=== PATIENT | female | born 1985 | race Caucasian/White ===

== ENCOUNTER 2017-02-13 18:45 | Inpatient (IN) | payer MEDICAID, OTHER ==
[2017-02-13 19:24] LABS: Hematocrit 40 % (35-47); Hemoglobin 13.3 g/dl (12.0-16.0); Mean Corpuscular HGB Conc 34 g/dl (31-36); Mean Corpuscular Hemoglobin 31 pg (27-31); Mean Corpuscular Volume 92 fL (80-97); Mean Platelet Volume 8 um3 (7.4-10.4); Red Blood Count 4.33 10^6/ul (4.0-5.4); Red Cell Distribution Width 13 % (10.5-15); White Blood Count 7.9 10^3/ul (3.5-10.8)
[2017-02-13 19:26] LABS: Urine Bilirubin Negative (Negative); Urine Glucose Negative (Negative); Urine Nitrite Negative (Negative)
[2017-02-13 19:39] LABS: ALT 7 U/L (7-52); AST 13 U/L (13-39); Albumin 4.6 g/dL (3.2-5.2); Alkaline Phosphatase 59 U/L (34-104); Anion Gap 5 mmol/L (2-11); BUN/Creatinine Ratio 12.3 (8-20); Blood Urea Nitrogen 10 mg/dL (6-24); CO2 Carbon Dioxide 29 mmol/L (22-32); Calcium 9.4 mg/dL (8.6-10.3); Chloride 104 mmol/L (101-111); EGFR African American 106.1 (>60); EGFR Non-African American 82.5 (>60); Globulin 3.1 g/dL (2-4); Glucose 91 mg/dL (70-100); Potassium 3.3 mmol/L (3.5-5.0); Sodium 138 mmol/L (133-145); Total Protein 7.7 g/dL (6.4-8.9)
[2017-02-13 19:42] LABS: Benzodiazepine Urine Screen None Detected (None Detect)
[2017-02-13 19:55] LABS: Acetaminophen < 15 mcg/mL; Alcohol < 10 mg/dL (<10); Salicylate < 2.50 mg/dL (<30)
[2017-02-13 20:06] LABS: TSH (Thyroid Stimulating Horm) 0.93 mcIU/mL (0.34-5.60)
[2017-02-13] MEDS ORDERED: Al Hydrox/Mg Hydrox/Simet LIQ* 30 ML UDC PO PRN (21:57)
[2017-02-13] MEDS ORDERED: Acetaminophen TAB* 325 MG PO PRN (21:57)
[2017-02-13] MEDS: Nicotine GUM* 2 MG PO PRN (22:02)
[2017-02-13] MEDS ORDERED: QUEtiapine TAB* 100 MG ONE (22:37)
[2017-02-13] MEDS: QUEtiapine TAB* 100 MG PO SCH (22:39)
[2017-02-13] MEDS: Zolpidem TAB* 10 MG PO SCH (22:39)
[2017-02-14] MEDS ORDERED: QUEtiapine TAB* 100 MG PO ONE (00:30)
[2017-02-14] MEDS ORDERED: QUEtiapine TAB* 100 MG ONE (00:34)
[2017-02-14] MEDS: Nicotine GUM* 2 MG PO PRN ×5 (00:36→22:35)
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
[2017-02-14] MEDS: Vitamin THERAPEUTIC TAB PO SCH (09:49)
[2017-02-14] MEDS ORDERED: Albuterol HFA INHALER* 8 gm MDI INH PRN (11:36)
[2017-02-14] MEDS ORDERED: Nicotine Inhaler* 10 MG AMP INH PRN (11:38)
[2017-02-14] MEDS ORDERED: Mouth Piece, Nicotine* 1 EACH CARTRIDGE INH ONE (12:00)
[2017-02-14] MEDS: Amphetamine MIXED SALT TAB* 10 MG TAB PO SCH (13:29)
[2017-02-14] MEDS: QUEtiapine TAB* 100 MG PO SCH (21:51)
[2017-02-14] MEDS: Zolpidem TAB* 10 MG PO SCH (22:34)
[2017-02-15] MEDS: Vitamin THERAPEUTIC TAB PO SCH (09:09)
[2017-02-15] MEDS: Amphetamine MIXED SALT TAB* 10 MG TAB PO SCH ×2 (09:10→14:10)
[2017-02-15] MEDS: Nicotine GUM* 2 MG PO PRN ×5 (09:10→21:33)
--- NOTE | 2017-02-15 12:15 | PN ---
MHU: Group Therapy Note - Service Type Service Type: [id number] Group Psychotherapy - Cognitive Behavioral Group Therapy ( CBT):Patient was attentive and participatory in CBT programming this morning, and remained in good behavioral control. Patient expressed positive insights regarding relevant treatment interventions and goals.
--- NOTE | 2017-02-15 12:24 | PN ---
Subjective - Subjective Service Type: 73074 Hosp care 15 min low complexity Subjective: Magaly reports a good unit experience. Notes feeling better. Says that although she probably appears relaxed and happy when socializing, she notes "anxiety is still there" when she withdraws. She does not feel like she's made sufficient progress to go home. We reviewed plan and medication. Objective - Appearance Appearance: Thin Framed Hygiene: Normal Grooming: Well Kept - Behavior Psychomotor Activities: Normal - Attitude and Relatedness Attitude and Relatedness: defended Eye Contact: Fair - Speech Quality: Unpressured Latencies: Normal Quantity: Appropriate - Mood Patient's Decription of Mood: "Anxious" - Affect Observed Affect: Non-labile Affect Consistent with: Euthymia - Thought Process Patient's Thought Process: Coherent, Goal Directed Thought Content: No Passive Wish, No Suicidal Planning, No Homicidal Ideation, No Paranoid Ideation - Sensorium Experiencing Hallucinations: No, Sensorium is Clear - Level of Consciousness Level of Consciousness: Alert - Impulse Control Impulse Control: Intact - Insight and Judgement Insight and Judgement: Fair Assessment - Assessment Merits Inpatient Hospitalization: For Stabilization, To Initiate Treatment, For Ongoing Evaluation, Consolidate Improvements, For Discharge Planning Inpatient DSM-IV Dx: Post-traumatic stress disorder, depressive disorder, borderline personality traits, ADHD, anorexia nervosa in remission. Clinical Impression: 31-year-old female with a history of trauma, borderline personality traits, chronic depressive tendencies, consideration for ADHD, PTSD, and previous suicidal behavior. She presented with report of unmanageable mood symptoms and increase in chronic suicidal thoughts in the setting of unclear stressor. Stabilizing here. Safe on checks, free of active suicidal ideation. Appears at low distress levels, notes ongoing subjective anxiety problem. Medication mgt. continues outpatient regimen. Plan - Plan Treatment Plan: Name: MAGALY BEARD Birthdate: 1985 [id number] Continued Medication Management: Continue Outpt Medication Medications: Current Medications Acetaminophen (Tylenol Tab*) 650 mg PO Q4H PRN PRN Reason: PAIN or TEMP > 101 F Last Admin: 02/14/17 11:20 Dose: 650 mg Al Hydrox/Mg Hydrox/Simethicone (Maalox Plus*) 30 ml PO Q4H PRN PRN Reason: INDIGESTION Albuterol (Ventolin Hfa Inhaler*) 2 puff INH Q4H PRN PRN Reason: SOB/WHEEZING Amphetamine/Dextroamphetamine (Adderall Tab*) 20 mg PO DAILY [facility] Last Admin: 02/15/17 09:10 Dose: 20 mg Amphetamine/Dextroamphetamine (Adderall Tab*) 20 mg PO 1400 [facility] Last Admin: 02/14/17 13:29 Dose: 20 mg Multivitamins (Theragran Tab*) 1 tab PO DAILY [facility] Last Admin: 02/15/17 09:09 Dose: Not Given Nicotine (Nicotine Inhaler*) 10 mg INH Q2H PRN PRN Reason: CRAVING Nicotine Polacrilex (Nicotine Gum*) 2 mg PO Q2H PRN PRN Reason: CRAVING Last Admin: 02/15/17 09:10 Dose: 2 mg Quetiapine Fumarate (Seroquel Tab*) 100 mg PO BEDTIME [facility] Last Admin: 02/14/17 21:51 Dose: 100 mg Zolpidem Tartrate (Ambien Tab*) 10 mg PO BEDTIME [facility] Last Admin: 02/14/17 22:34 Dose: 10 mg - Discharge Plan Discharge Plan: Outpatient Follow Up Outpatient Program: Private Clinician(s)
[2017-02-15] MEDS: QUEtiapine TAB* 100 MG PO SCH (22:10)
[2017-02-15] MEDS: Zolpidem TAB* 10 MG PO SCH (22:42)
[2017-02-16] MEDS: Amphetamine MIXED SALT TAB* 10 MG TAB PO SCH ×2 (09:10→14:01)
[2017-02-16] MEDS: Nicotine GUM* 2 MG PO PRN ×4 (09:11→20:48)
[2017-02-16] MEDS: Vitamin THERAPEUTIC TAB PO SCH (09:14)
--- NOTE | 2017-02-16 17:04 | PN ---
Subjective - Subjective Service Type: 45943 Hosp care 15 min low complexity Subjective: Says she feels somewhat better today and haven't thought self harm. Knows when to ask for help. Interactive on the unit with peers. Feels safe. Objective - Appearance Appearance: Thin Framed Dysmorphic Features: No Hygiene: Normal Grooming: Fairly Well Kept - Behavior Psychomotor Activities: Normal Exhibits Abnormal Movement: No - Attitude and Relatedness Attitude and Relatedness: Appropriate Eye Contact: Good - Speech Quality: Unpressured Latencies: Normal Quantity: Appropriate - Mood Patient's Decription of Mood: "Fine" - Affect Observed Affect: Non-labile - Thought Process Patient's Thought Process: Coherent, Goal Directed Thought Content: No Passive Wish, No Suicidal Planning, No Homicidal Ideation, No Paranoid Ideation - Sensorium Experiencing Hallucinations: No, Sensorium is Clear Type of Hallucinations: Visual: No, Auditory: No, Command: No - Level of Consciousness Level of Consciousness: Alert Orientation: Yes Intact, Yes Orientated to Time, Yes Orientated to Place, Yes Orientated to Person - Impulse Control Impulse Control: Intact - Insight and Judgement Insight and Judgement: Fair - Group Participation Particating in Group Activities: Yes - Medication Management Medication Management Adherence: Yes Assessment - Assessment Merits Inpatient Hospitalization: Consolidate Improvements, Pending Safe DC Plan Inpatient DSM-IV Dx: Post-traumatic stress disorder, depressive disorder, borderline personality traits, ADHD, anorexia nervosa in remission. Plan - Plan Treatment Plan: Name: MAGALY BEARD Birthdate: 1985 [id number] Continued Medication Management: Continue Outpt Medication Medications: Current Medications Acetaminophen (Tylenol Tab*) 650 mg PO Q4H PRN PRN Reason: PAIN or TEMP > 101 F Last Admin: 02/14/17 11:20 Dose: 650 mg Al Hydrox/Mg Hydrox/Simethicone (Maalox Plus*) 30 ml PO Q4H PRN PRN Reason: INDIGESTION Albuterol (Ventolin Hfa Inhaler*) 2 puff INH Q4H PRN PRN Reason: SOB/WHEEZING Amphetamine/Dextroamphetamine (Adderall Tab*) 20 mg PO DAILY [facility] Last Admin: 02/16/17 09:10 Dose: 20 mg Amphetamine/Dextroamphetamine (Adderall Tab*) 20 mg PO 1400 [facility] Last Admin: 02/16/17 14:01 Dose: 20 mg Multivitamins (Theragran Tab*) 1 tab PO DAILY [facility] Last Admin: 02/16/17 09:14 Dose: 1 tab Nicotine (Nicotine Inhaler*) 10 mg INH Q2H PRN PRN Reason: CRAVING Nicotine Polacrilex (Nicotine Gum*) 2 mg PO Q2H PRN PRN Reason: CRAVING Last Admin: 02/16/17 14:01 Dose: 2 mg Quetiapine Fumarate (Seroquel Tab*) 100 mg PO BEDTIME [facility] Last Admin: 02/15/17 22:10 Dose: 100 mg Zolpidem Tartrate (Ambien Tab*) 10 mg PO BEDTIME [facility] Last Admin: 02/15/17 22:42 Dose: 10 mg - Discharge Plan Discharge Plan: Outpatient Follow Up Outpatient Program: [facility]
[2017-02-16] MEDS: Zolpidem TAB* 10 MG PO SCH ×2 (22:33→23:11)
[2017-02-16] MEDS: QUEtiapine TAB* 100 MG PO SCH ×2 (22:33→23:11)
[2017-02-17] MEDS: Vitamin THERAPEUTIC TAB PO SCH (08:57)
[2017-02-17] MEDS: Amphetamine MIXED SALT TAB* 10 MG TAB PO SCH ×2 (08:57→14:08)
[2017-02-17] MEDS: Nicotine GUM* 2 MG PO PRN ×5 (08:58→21:27)
[2017-02-17] MEDS: Zolpidem TAB* 10 MG PO SCH (22:12)
[2017-02-17] MEDS: QUEtiapine TAB* 100 MG PO SCH (22:12)
--- NOTE | 2017-02-18 08:13 | PN ---
Subjective - Subjective Service Type: 77022 Hosp care 15 min low complexity Subjective: Magaly reports feeling safe and "basically okay." She was reluctant to plan discharge, citing wanting clarity and answers on her application for housing first "Living with my mom is not a great situation." She said she had a setback of anxiety on Saturday, but otherwise making some level of progress. Objective - Appearance Appearance: Thin Framed Hygiene: Normal Grooming: Fairly Well Kept - Behavior Psychomotor Activities: Normal - Attitude and Relatedness Attitude and Relatedness: defended Eye Contact: Good - Speech Quality: Unpressured Latencies: Normal Quantity: Terse - Mood Patient's Decription of Mood: "Okay" - Affect Observed Affect: Non-labile Affect Consistent with: Dysphoria - mild - Thought Process Patient's Thought Process: Coherent Thought Content: No Passive Wish, No Suicidal Planning, No Homicidal Ideation, No Paranoid Ideation - Sensorium Experiencing Hallucinations: No, Sensorium is Clear - Level of Consciousness Level of Consciousness: Alert - Impulse Control Impulse Control: Intact - Insight and Judgement Insight and Judgement: Fair Assessment - Assessment Merits Inpatient Hospitalization: To Initiate Treatment, For Ongoing Evaluation , Consolidate Improvements, For Discharge Planning Inpatient DSM-IV Dx: Post-traumatic stress disorder, depressive disorder, borderline personality traits, ADHD, anorexia nervosa in remission. Clinical Impression: 31-year-old female with a history of trauma, borderline personality traits, chronic depressive tendencies, consideration for ADHD, PTSD, and previous suicidal behavior. She presented with report of unmanageable mood symptoms and increase in chronic suicidal thoughts in the setting of unclear stressor. Stabilized here. Safe on checks, free of ongoing active suicidal ideation. Continues to appear at low distress levels, and notes ongoing subjective anxiety problems, without major progress here. Medication mgt. continues outpatient regimen. Given status and profile, substantial gains with acute care are not expected. Anticipate discharge in next few days. Plan - Plan Treatment Plan: Name: MAGALY BEARD Birthdate: 1985 [id number] Continued Medication Management: Continue Outpt Medication Medications: Current Medications Acetaminophen (Tylenol Tab*) 650 mg PO Q4H PRN PRN Reason: PAIN or TEMP > 101 F Last Admin: 02/14/17 11:20 Dose: 650 mg Al Hydrox/Mg Hydrox/Simethicone (Maalox Plus*) 30 ml PO Q4H PRN PRN Reason: INDIGESTION Albuterol (Ventolin Hfa Inhaler*) 2 puff INH Q4H PRN PRN Reason: SOB/WHEEZING Amphetamine/Dextroamphetamine (Adderall Tab*) 20 mg PO DAILY [facility] Last Admin: 02/17/17 08:57 Dose: 20 mg Amphetamine/Dextroamphetamine (Adderall Tab*) 20 mg PO 1400 [facility] Last Admin: 02/17/17 14:08 Dose: 20 mg Multivitamins (Theragran Tab*) 1 tab PO DAILY [facility] Last Admin: 02/17/17 08:57 Dose: 1 tab Nicotine (Nicotine Inhaler*) 10 mg INH Q2H PRN PRN Reason: CRAVING Nicotine Polacrilex (Nicotine Gum*) 2 mg PO Q2H PRN PRN Reason: CRAVING Last Admin: 02/17/17 21:27 Dose: 2 mg Quetiapine Fumarate (Seroquel Tab*) 100 mg PO BEDTIME [facility] Last Admin: 02/17/17 22:12 Dose: 100 mg Zolpidem Tartrate (Ambien Tab*) 10 mg PO BEDTIME [facility] Last Admin: 02/17/17 22:12 Dose: 10 mg - Discharge Plan Discharge Plan: Outpatient Follow Up
[2017-02-18] MEDS: Vitamin THERAPEUTIC TAB PO SCH (09:10)
[2017-02-18] MEDS: Amphetamine MIXED SALT TAB* 10 MG TAB PO SCH ×2 (09:10→14:51)
[2017-02-18] MEDS: Nicotine GUM* 2 MG PO PRN ×5 (09:12→20:56)
--- NOTE | 2017-02-18 12:01 | PN ---
MHU: Group Therapy Note - Service Type Service Type: [id number] Group Psychotherapy - Cognitive Behavioral Group Therapy ( CBT):Patient was attentive and participatory in CBT programming this morning, and remained in good behavioral control. Patient expressed positive insights regarding relevant treatment interventions and goals.
[2017-02-19] MEDS: QUEtiapine TAB* 100 MG PO SCH (00:21)
[2017-02-19] MEDS: Zolpidem TAB* 10 MG PO SCH (00:21)
[2017-02-19 08:30] VITALS: BP 93/65
[2017-02-19] MEDS: Amphetamine MIXED SALT TAB* 10 MG TAB PO SCH ×2 (09:22→14:22)
[2017-02-19] MEDS: Nicotine GUM* 2 MG PO PRN ×2 (09:23→14:22)
[2017-02-19] MEDS: Vitamin THERAPEUTIC TAB PO SCH (09:23)
--- NOTE | 2017-02-19 14:25 | DS ---
Subjective - Subjective Service Types: [id number] [facility] Day Mgmt complex over 30 min Discharge Date: 02/19/17 Subjective: Reyna was ambivalent about discharge today. On the one hand she recognized that there is no further anticipated gains to be expected. On the other she said she wished she felt better. We reviewed aftercare plan and medications - she said she sees no barriers to routine treatment or emergency care if needed again. She declined to allow partner integration planner contact with her family, but did allow coordination with aftercare. We discussed her housing situation. It's clear she has not been "evicted" by her mom, and actually has been able to stay with her brother when her conflict with mom escalates. Our expectation (discussed with staff familiar with her ) is that she will take a bus to [place] and have her brother pick her up ( after work) and take her home with him or drop her at mom's. She refuses to allow us to confirm this, and my take is that she's angry, frustrated overall that the system is not providing her with housing in [place], and has been using the idea of homelessness as a lever to get more help on that front. Objective - Appearance Appearance: Thin Framed Hygiene: Normal Grooming: Fairly Well Kept - Behavior Psychomotor Activities: Normal - Attitude and Relatedness Attitude and Relatedness: Manipulative Eye Contact: Good - Speech Quality: Unpressured Latencies: Normal Quantity: Appropriate - Mood Patient's Decription of Mood: "Okay" - Affect Observed Affect: Labile Affect Consistent with: Dysphoria - mild - Thought Process Patient's Thought Process: Coherent Thought Content: No Passive Wish, No Suicidal Planning, No Homicidal Ideation, No Paranoid Ideation - Sensorium Experiencing Hallucinations: No, Sensorium is Clear - Level of Consciousness Level of Consciousness: Alert - Impulse Control Impulse Control: Intact - Insight and Judgement Insight and Judgement: Fair Treatment Course & Assessment Clinical Course & Impression: 31-year-old female with a history of trauma, borderline personality traits, chronic depressive tendencies, consideration for ADHD, PTSD, and previous suicidal behavior. She presented with report of unmanageable mood symptoms and increase in chronic suicidal thoughts in the setting of unclear stressor. 02/19/17 Clear for discharge today. Reyna was stable in this setting. She was safe on all checks, free of ongoing active suicidal ideation. After her first day she already appeared at low distress levels, with sufficient benefits from a acute care episode already realized. Given Reyna's status and profile, gains with ongoing acute care are not expected now. An issue appears to be her dissatisfaction with living with her mother, and her process of seeking help with housing support. She engaged her partner integration planner for assistance with this, and was not happy with results - the reality is that she does not have near term access to supported housing in [place]. Her frustration around this appears to have caused some alliance breakdown and negative therapeutic reactions as appropriate discharge is organized. Medication mgt. continues outpatient regimen. At this time Reyna is unimpaired by symptoms. Depressive symptoms and anxiety are assessed as mild in severity based on correlation between clinical interview and other observations by staff. Risk concern centers on suicide risk. Reyna is at chronic elevated risk for suicide based on her prior history, and her diagnostic profile. Acute risk is assessed as low based on low symptom burden, absence of impairment , and patients observed benign behavior. Compared with other discharges, Reyna's satisfaction and engagement is poor, making it harder to predict her behavior, and potentially increasing risk for reactive self harm behavior. Clear for Discharge: Adequate Clinical Respons, Acceptable Safety Profile, Low Utility of Inpt Care Inpatient DSM-IV Dx: Post-traumatic stress disorder, depressive disorder, borderline personality traits, ADHD, anorexia nervosa in remission. Discharge Planning - Discharge Planning Discharge Plan: Outpatient Follow Up Outpatient Program: Private Clinician(s) Recommendations for Continuing Care: Medication Management, Psychotherapy Medications: Current Medications Albuterol (Ventolin Hfa Inhaler*) 2 puff INH Q4H PRN PRN Reason: SOB/WHEEZING Amphetamine/Dextroamphetamine (Adderall Tab*) 20 mg PO DAILY [facility] Last Admin: 02/19/17 09:22 Dose: 20 mg Amphetamine/Dextroamphetamine (Adderall Tab*) 20 mg PO 1400 [facility] Last Admin: 02/18/17 14:51 Dose: 20 mg Quetiapine Fumarate (Seroquel Tab*) 100 mg PO BEDTIME [facility] Last Admin: 02/19/17 00:21 Dose: 100 mg Zolpidem Tartrate (Ambien Tab*) 10 mg PO BEDTIME [facility] Last Admin: 02/19/17 00:21 Dose: 10 mg Confirmed expected controlled Rx's with [facility] Reference #: [id number] Discharge Planning: Prescriptions provided for discharge [] Yes [x] No Follow up care details as per social work arrangements. Patient response to discharge plan: [] eager for discharge [] agreeable with discharge plan [x] ambivalent about discharge [] disagrees with discharge today
== END 2017-02-19 15:30 | disposition home or self-care (01) | DRG 755 ==
LOC: ED 18:45 → BSU 23:20
PROVIDERS: ADMIT Psychiatry & Neurology Psychiatry; ATTEND Psychiatry & Neurology Psychiatry
PROC: GZHZZZZ Group Psychotherapy (ICD-10-PCS; principal; 2017-02-13)
DX: F43.10 Post-traumatic stress disorder, unspecified (principal); F50.00 Anorexia nervosa, unspecified; F32.9 Major depressive disorder, single episode, unspecified; F90.9 Attention-deficit hyperactivity disorder, unspecified type; Z56.0 Unemployment, unspecified; F60.3 Borderline personality disorder; J45.909 Unspecified asthma, uncomplicated; M81.0 Age-related osteoporosis without current pathological fracture; F17.210 Nicotine dependence, cigarettes, uncomplicated; Z62.810 Personal history of physical and sexual abuse in childhood
CPT/HCPCS: 36415; 80053; 80307; 80320; 80329; 81003; 84443; 85025; 90853; 99222; 99231; 99238; 99406; A9270-GY; G0480

== ENCOUNTER 2017-04-18 20:36 | Inpatient (IN) | payer MEDICAID, OTHER ==
[2017-04-18 22:06] LABS: Urine Bilirubin Negative (Negative); Urine Glucose Negative (Negative); Urine Nitrite Negative (Negative)
[2017-04-18 22:24] LABS: Hematocrit 39 % (35-47); Hemoglobin 12.8 g/dl (12.0-16.0); Mean Corpuscular HGB Conc 33 g/dl (31-36); Mean Corpuscular Hemoglobin 30 pg (27-31); Mean Corpuscular Volume 91 fL (80-97); Mean Platelet Volume 9 um3 (7.4-10.4); Red Blood Count 4.25 10^6/ul (4.0-5.4); Red Cell Distribution Width 13 % (10.5-15)
[2017-04-18 22:39] LABS: ALT 7 U/L (7-52); AST 13 U/L (13-39); Albumin 4.3 g/dL (3.2-5.2); Alkaline Phosphatase 60 U/L (34-104); Anion Gap 4 mmol/L (2-11); Blood Urea Nitrogen 17 mg/dL (6-24); CO2 Carbon Dioxide 28 mmol/L (22-32); Calcium 9.5 mg/dL (8.6-10.3); Chloride 105 mmol/L (101-111); EGFR African American 129.8 (>60); EGFR Non-African American 100.9 (>60); Globulin 2.6 g/dL (2-4); Glucose 89 mg/dL (70-100); Potassium 3.8 mmol/L (3.5-5.0); Sodium 137 mmol/L (133-145); Total Protein 6.9 g/dL (6.4-8.9)
[2017-04-18 22:41] LABS: Benzodiazepine Urine Screen None Detected (None Detect)
[2017-04-18] MEDS ORDERED: Nicotine GUM* 2 MG ONE (23:16)
[2017-04-18] MEDS ORDERED: Nicotine GUM* 2 MG PO ONE (23:16)
[2017-04-18 23:17] LABS: Acetaminophen < 15 mcg/mL; Alcohol < 10 mg/dL (<10); Salicylate < 2.50 mg/dL (<30)
[2017-04-18 23:27] LABS: TSH (Thyroid Stimulating Horm) 1.63 mcIU/mL (0.34-5.60)
[2017-04-19] MEDS ORDERED: QUEtiapine TAB* 100 MG PO ONE (00:25)
[2017-04-19] MEDS ORDERED: Zolpidem TAB* 10 MG PO ONE (00:25)
[2017-04-19] MEDS ORDERED: Nicotine Inhaler* 10 MG AMP INH PRN (06:13)
[2017-04-19] MEDS ORDERED: Acetaminophen TAB* 325 MG PO PRN (06:13)
[2017-04-19] MEDS ORDERED: Mouth Piece, Nicotine* 1 EACH CARTRIDGE INH SCH (06:13)
[2017-04-19] MEDS ORDERED: Al Hydrox/Mg Hydrox/Simet LIQ* 30 ML UDC PO PRN (06:13)
[2017-04-19] MEDS ORDERED: Albuterol HFA INHALER* 8 gm MDI INH PRN (06:15)
[2017-04-19] MEDS: Vitamin THERAPEUTIC TAB PO SCH (09:17)
[2017-04-19] MEDS: Nicotine GUM* 2 MG PO PRN ×4 (09:18→20:33)
--- NOTE | 2017-04-19 13:02 | ED ---
dangelo Benz Timothy, scribed for Jorge Penaloza MD on 04/18/17 at 2109 . Psychiatric Complaint - HPI Summary HPI Summary: Reyna Dailey is a 31 yo female presenting to [facility] for MHUE per her therapist' s recommendation. She admits to SI for the past week, and has a plan, and has googled how to tie a noose. She is not in any current pain. She states that she has been rationalizing her feelings by generalizing her problems to the larger world. Her MHx includes heart murmur, migraine, asthma, hiatal hernoia, osteoperosis, ADHD, PTSD, eating disorder, depression, anxiety, substance abuse , suicide attempt, borderline personality disorder, and tobacco use. - History Of Current Complaint Chief Complaint: EDMentalHealth Time Seen by Provider: 04/18/17 20:58 Hx Obtained From: Patient Onset/Duration: Gradual Onset, Lasting Days, Still Present Timing: Constant Severity Initially: Moderate Severity Currently: Moderate Character: Depressed Related History: Positive For: Prior Psychiatric Issues Has Suicidal: Reports: Thoughts, With A Plan - Allergies/Home Medications Allergies/Adverse Reactions: Allergies Allergy/AdvReac Type Severity Reaction Status Date / Time No Known Allergies Allergy Verified 04/18/17 20:38 PMH/Surg Hx/FS Hx/Imm Hx Endocrine/Hematology History: Denies: Hx Anticoagulant Therapy, Hx Diabetes, Hx Thyroid Disease Cardiovascular History: Reports: Other Cardiovascular Problems/Disorders - RAYNAUDS PHENOMENON Denies: Hx Hypertension, Hx Pacemaker/ICD Respiratory History: Reports: Hx Asthma - Occasional to rare use of Albuterol MDI Denies: Hx Chronic Obstructive Pulmonary Disease (COPD) GI History: Reports: Hx Hiatal Hernia History: Denies: Hx Renal Disease Musculoskeletal History: Reports: Hx Osteoporosis Sensory History: Denies: Hx Contacts or Glasses, Hx Hearing Aid Opthamlomology History: Denies: Hx Contacts or Glasses Neurological History: Reports: Hx Migraine Denies: Hx Dementia, Hx Developmental Delay, Hx Headaches, Hx Nerve Disease, Hx Seizures, Hx Spinal Cord Injury, Hx Transient Ischemic Attacks (TIA), Other Neuro Impairments/Disorders Psychiatric History: Reports: Hx Anxiety, Hx Attention Deficit Hyperactivity Disorder, Hx Eating Disorder, Hx Depression, Hx Post Traumatic Stress Disorder, Hx Inpatient Treatment, Hx Community Mental Health Tx, Hx Suicide Attempt, Hx Substance Abuse, Other Psychiatric Issues/Disorders - BORDERLINE PERS D/O Denies: Hx Panic Disorder, Hx Schizophrenia, Hx Bipolar Disorder, Hx of Violent Episodes Against Others - Surgical History Surgery Procedure, Year, and Place: wisdom teeth removal - Immunization History Date of Tetanus Vaccine: unknown Infectious Disease History: No Infectious Disease History: Denies: Hx Clostridium Difficile, Hx Hepatitis, Hx Human Immunodeficiency Virus (HIV), Hx Shingles, Hx Tuberculosis, Hx Known/Suspected VRE, Hx Known/ Suspected VRSA, History Other Infectious Disease, Traveled Outside the [place] in Last 30 Days - Family History Known Family History: Positive: Other - DEPRESSION, ETOH ABUSE Negative: Cardiac Disease, Hypertension, Diabetes - Social History Alcohol Use: None Hx Substance Use: No Substance Use Type: Reports: None Hx Tobacco Use: Yes - 8 YEARS, 1/2 PACK A DAY Smoking Status (MU): Light Every Day Tobacco Smoker Type: Cigarettes Amount Used/How Often: 1/2 ppd Length of Time of Smoking/Using Tobacco: 10 years Have You Smoked in the Last Year: Yes - Smoked yesterday 05/31/16; "1/2 pack-a- day smoker" Review of Systems Constitutional: Negative Eyes: Negative ENT: Negative Cardiovascular: Negative Respiratory: Negative Gastrointestinal: Negative Genitourinary: Negative Musculoskeletal: Negative Skin: Negative Neurological: Negative Positive: Depressed All Other Systems Reviewed And Are Negative: Yes Physical Exam Vital Signs On Initial Exam: Initial Vitals Temp Pulse Resp BP Pulse Ox 98.0 F 113 20 138/74 100 04/18/17 20:38 04/18/17 20:38 04/18/17 20:38 04/18/17 20:38 04/18/17 20:38 Diagnostics - Vital Signs Vital Signs Temp Pulse Resp BP Pulse Ox 04/18/17 20:38 98.0 F 113 20 138/74 100 - Laboratory Lab Results: Lab Results 04/18/17 04/18/17 04/18/17 Range/Units 21:50 21:50 22:13 WBC 8.0 (3.5-10.8) 10^3/ul RBC 4.25 (4.0-5.4) 10^6/ul Hgb 12.8 (12.0-16.0) g/dl Hct 39 (35-47) % MCV 91 (80-97) fL MCH 30 (27-31) pg MCHC 33 (31-36) g/dl RDW 13 (10.5-15) % Plt Count 261 (150-450) 10^3/ul MPV 9 (7.4-10.4) um3 Neut % (Auto) 52.2 (38-83) % Lymph % (Auto) 28.0 (25-47) % Blount % (Auto) 10.8 H (1-9) % Eos % (Auto) 7.9 H (0-6) % Baso % (Auto) 1.1 (0-2) % Absolute Neuts (auto) 4.2 (1.5-7.7) 10^3/ul Absolute Lymphs (auto) 2.2 (1.0-4.8) 10^3/ul Absolute Monos (auto) 0.9 H (0-0.8) 10^3/ul Absolute Eos (auto) 0.6 (0-0.6) 10^3/ul Absolute Basos (auto) 0.1 (0-0.2) 10^3/ul Absolute Nucleated RBC 0.01 10^3/ul Nucleated RBC % 0.1 Sodium (133-145) mmol/L Potassium (3.5-5.0) mmol/L Chloride (101-111) mmol/L Carbon Dioxide (22-32) mmol/L Anion Gap (2-11) mmol/L BUN (6-24) mg/dL Creatinine (0.51-0.95) mg/dL Est GFR ( Amer) (>60) Est GFR (Non-Af Amer) (>60) BUN/Creatinine Ratio (8-20) Glucose (70-100) mg/dL Calcium (8.6-10.3) mg/dL Total Bilirubin (0.2-1.0) mg/dL AST (13-39) U/L ALT (7-52) U/L Alkaline Phosphatase (34-104) U/L Total Protein (6.4-8.9) g/dL Albumin (3.2-5.2) g/dL Globulin (2-4) g/dL Albumin/Globulin Ratio (1-3) TSH (0.34-5.60) mcIU/mL Beta HCG, Quant mIU/mL Urine Color Straw Urine Appearance Clear Urine pH 7.0 (5-9) Ur Specific [place] 1.004 L (1.010-1.030) Urine Protein Negative (Negative) Urine Ketones Negative (Negative) Urine Blood Negative (Negative) Urine Nitrate Negative (Negative) Urine Bilirubin Negative (Negative) Urine Urobilinogen Negative (Negative) Ur Leukocyte Esterase Negative (Negative) Urine Glucose Negative (Negative) Salicylates (<30) mg/dL Urine Opiates Screen None detected (None Detect) Acetaminophen mcg/mL Ur Barbiturates Screen None detected (None Detect) Ur Phencyclidine Scrn None detected (None Detect) Ur Amphetamines Screen None detected (None Detect) U Benzodiazepines Scrn None detected (None Detect) Urine Cocaine Screen None detected (None Detect) U Cannabinoids Screen None detected (None Detect) Serum Alcohol (<10) mg/dL 04/18/17 Range/Units 22:13 WBC (3.5-10.8) 10^3/ul RBC (4.0-5.4) 10^6/ul Hgb (12.0-16.0) g/dl Hct (35-47) % MCV (80-97) fL MCH (27-31) pg MCHC (31-36) g/dl RDW (10.5-15) % Plt Count (150-450) 10^3/ul MPV (7.4-10.4) um3 Neut % (Auto) (38-83) % Lymph % (Auto) (25-47) % Blount % (Auto) (1-9) % Eos % (Auto) (0-6) % Baso % (Auto) (0-2) % Absolute Neuts (auto) (1.5-7.7) 10^3/ul Absolute Lymphs (auto) (1.0-4.8) 10^3/ul Absolute Monos (auto) (0-0.8) 10^3/ul Absolute Eos (auto) (0-0.6) 10^3/ul Absolute Basos (auto) (0-0.2) 10^3/ul Absolute Nucleated RBC 10^3/ul Nucleated RBC % Sodium 137 (133-145) mmol/L Potassium 3.8 (3.5-5.0) mmol/L Chloride 105 (101-111) mmol/L Carbon Dioxide 28 (22-32) mmol/L Anion Gap 4 (2-11) mmol/L BUN 17 (6-24) mg/dL Creatinine 0.68 (0.51-0.95) mg/dL Est GFR ( Amer) 129.8 (>60) Est GFR (Non-Af Amer) 100.9 (>60) BUN/Creatinine Ratio 25.0 H (8-20) Glucose 89 (70-100) mg/dL Calcium 9.5 (8.6-10.3) mg/dL Total Bilirubin 0.30 (0.2-1.0) mg/dL AST 13 (13-39) U/L ALT 7 (7-52) U/L Alkaline Phosphatase 60 (34-104) U/L Total Protein 6.9 (6.4-8.9) g/dL Albumin 4.3 (3.2-5.2) g/dL Globulin 2.6 (2-4) g/dL Albumin/Globulin Ratio 1.7 (1-3) TSH 1.63 (0.34-5.60) mcIU/mL Beta HCG, Quant < 0.60 mIU/mL Urine Color Urine Appearance Urine pH (5-9) Ur Specific [place] (1.010-1.030) Urine Protein (Negative) Urine Ketones (Negative) Urine Blood (Negative) Urine Nitrate (Negative) Urine Bilirubin (Negative) Urine Urobilinogen (Negative) Ur Leukocyte Esterase (Negative) Urine Glucose (Negative) Salicylates < 2.50 (<30) mg/dL Urine Opiates Screen (None Detect) Acetaminophen < 15 mcg/mL Ur Barbiturates Screen (None Detect) Ur Phencyclidine Scrn (None Detect) Ur Amphetamines Screen (None Detect) U Benzodiazepines Scrn (None Detect) Urine Cocaine Screen (None Detect) U Cannabinoids Screen (None Detect) Serum Alcohol < 10 (<10) mg/dL Result Diagrams: 04/18/17 22:13 04/18/17 22:13 Lab Statement: Any lab studies that have been ordered have been reviewed, and results considered in the medical decision making process. Course/Dx - Course Assessment/Plan: Reyna Bailon is a 31 yo female presenting to [facility] for a MHUE per the recommendation of her therapist, admitting to for the past week. She is medically clear for MHUE at 2312. She will be signed out pendin MHUE results. - Differential Dx/Clinical Impression Provider Diagnosis: Depression Discharge - Discharge Plan Condition: Stable Disposition: ADMITTED TO [facility] Discharge Disposition Comment: signed out pending MHUE results The documentation as recorded by the dangelo ramos Timothy accurately reflects the service I personally performed and the decisions made by me, Jorge Penaloza MD.
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
[2017-04-19] MEDS: QUEtiapine TAB* 100 MG PO PRN (22:09)
[2017-04-19] MEDS: Zolpidem TAB* 10 MG PO PRN (22:09)
[2017-04-20] MEDS: Amphetamine MIXED SALT TAB* 10 MG TAB PO SCH ×2 (09:12→14:00)
[2017-04-20] MEDS: Vitamin THERAPEUTIC TAB PO SCH (09:12)
[2017-04-20] MEDS: Nicotine GUM* 2 MG PO PRN ×4 (09:15→20:02)
--- NOTE | 2017-04-20 18:31 | PN ---
Subjective - Subjective Service Type: 04541 Hosp care 15 min low complexity Subjective: Magaly is seen for routine weekend follow up. She denies SI and indicates that she's likely returning to [place], [place] after d/c to stay with her mother until she's feeling better. She's active in groups and requests computer privileges. Objective - Appearance Appearance: Well Developed/Nourished Dysmorphic Features: No Hygiene: Normal Grooming: Well Kept - Behavior Psychomotor Activities: Normal Exhibits Abnormal Movement: No - Attitude and Relatedness Attitude and Relatedness: Cooperative Eye Contact: Good - Speech Quality: Unpressured Latencies: Normal Quantity: Appropriate - Mood Patient's Decription of Mood: "Good" - Affect Observed Affect: Good Affect Consistent with: Euthymia - Thought Process Patient's Thought Process: Coherent Thought Content: No Passive Wish, No Suicidal Planning, No Homicidal Ideation, No Paranoid Ideation - Sensorium Experiencing Hallucinations: No, Sensorium is Clear Type of Hallucinations: Visual: No, Auditory: No, Command: No - Level of Consciousness Level of Consciousness: Alert Orientation: Yes Intact, Yes Orientated to Time, Yes Orientated to Place, Yes Orientated to Person - Impulse Control Impulse Control: Intact - Insight and Judgement Insight and Judgement: Good - Group Participation Particating in Group Activities: Yes - Medication Management Medication Management Adherence: Yes Assessment - Assessment Merits Inpatient Hospitalization: For Immediate Safety, For Stabilization Inpatient DSM-IV Dx: PTSD Clinical Impression: 31 y.o. single, white female with a history of PTSD arrives voluntarily seeking hospitalization for worsening depressive symptoms and SI with thoughts of hanging herself. Plan - Plan Treatment Plan: Name: MAGALY BEARD Birthdate: 1985 [id number] The patient is taking outpatient medication regimen that includes quetiapine, zolpidem and amphetamine salts. She is active on the milieu. Continue to treat inpatient. Continued Medication Management: Continue Outpt Medication Medications: Current Medications Acetaminophen (Tylenol Tab*) 650 mg PO Q4H PRN PRN Reason: PAIN or TEMP > 101 F Al Hydrox/Mg Hydrox/Simethicone (Maalox Plus*) 30 ml PO Q4H PRN PRN Reason: INDIGESTION Albuterol (Ventolin Hfa Inhaler*) 2 puff INH Q4H PRN PRN Reason: SHORTNESS OF BREATH Amphetamine/Dextroamphetamine (Adderall Tab*) 20 mg PO 0800,1300 [facility] Last Admin: 04/20/17 14:00 Dose: 20 mg Device (Nicotine Mouth Piece*) 1 each INH .CARTRIDGE [facility] Multivitamins (Theragran Tab*) 1 tab PO DAILY [facility] Last Admin: 04/20/17 09:12 Dose: 1 tab Nicotine (Nicotine Inhaler*) 10 mg INH Q2H PRN PRN Reason: CRAVING Nicotine Polacrilex (Nicotine Gum*) 2 mg PO Q2H PRN PRN Reason: CRAVING Last Admin: 04/20/17 16:01 Dose: 2 mg Quetiapine Fumarate (Seroquel Tab*) 100 mg PO BEDTIME PRN PRN Reason: INSOMNIA Last Admin: 04/19/17 22:09 Dose: 100 mg Zolpidem Tartrate (Ambien Tab*) 10 mg PO BEDTIME PRN PRN Reason: INSOMNIA Last Admin: 04/19/17 22:09 Dose: 10 mg - Discharge Plan Discharge Plan: Inpatient Hospitalization
[2017-04-21] MEDS: Zolpidem TAB* 10 MG PO PRN (00:15)
[2017-04-21] MEDS: QUEtiapine TAB* 100 MG PO PRN (00:15)
[2017-04-21] MEDS: Nicotine GUM* 2 MG PO PRN ×5 (00:16→19:48)
[2017-04-21] MEDS: Vitamin THERAPEUTIC TAB PO SCH (09:00)
[2017-04-21] MEDS: Amphetamine MIXED SALT TAB* 10 MG TAB PO SCH ×3 (09:00→13:41)
[2017-04-22] MEDS: Nicotine GUM* 2 MG PO PRN ×6 (03:21→22:55)
[2017-04-22] MEDS: Amphetamine MIXED SALT TAB* 10 MG TAB PO SCH ×2 (09:35→14:10)
[2017-04-22] MEDS: Vitamin THERAPEUTIC TAB PO SCH (09:35)
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
[2017-04-22] MEDS: QUEtiapine TAB* 100 MG PO PRN (22:54)
[2017-04-22] MEDS: Zolpidem TAB* 10 MG PO PRN (22:54)
[2017-04-23 07:49] VITALS: BP 112/68
[2017-04-23] MEDS: Amphetamine MIXED SALT TAB* 10 MG TAB PO SCH (08:50)
[2017-04-23] MEDS: Vitamin THERAPEUTIC TAB PO SCH (08:50)
[2017-04-23] MEDS: Nicotine GUM* 2 MG PO PRN (08:52)
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
--- NOTE | 2017-04-23 11:44 | PN ---
MHU: Group Therapy Note - Service Type Service Type: [id number] Group Psychotherapy - Cognitive Behavioral Group Therapy ( CBT):Patient was attentive and participatory in CBT programming this morning, and remained in good behavioral control. Patient expressed positive insights regarding relevant treatment interventions and goals.
[2017-04-23] MEDS ORDERED: Amphetamine MIXED SALT TAB* 10 MG TAB PO ONE (12:00)
[2017-04-23 12:33] LABS: Cholesterol 160 mg/dL; HDL Cholesterol 65.6 mg/dL; LDL Cholesterol 85 mg/dL; Triglycerides 48 mg/dL
== END 2017-04-23 12:25 | disposition home or self-care (01) | DRG 755 ==
LOC: ED 20:36 → BSU 04-19 04:50
PROVIDERS: ADMIT Internal Medicine; ATTEND Psychiatry & Neurology Psychiatry
DX: F43.10 Post-traumatic stress disorder, unspecified (principal); R45.851 Suicidal ideations; F41.9 Anxiety disorder, unspecified; F90.9 Attention-deficit hyperactivity disorder, unspecified type; J45.909 Unspecified asthma, uncomplicated; K44.9 Diaphragmatic hernia without obstruction or gangrene; G43.909 Migraine, unspecified, not intractable, without status migrainosus; Z88.6 Allergy status to analgesic agent; Z81.8 Family history of other mental and behavioral disorders; Z81.1 Family history of alcohol abuse and dependence
CPT/HCPCS: 36415; 80053; 80061; 80307; 80320; 80329; 81003; 84443; 84702; 85025; 99231; 99238; A9270-GY; G0480

== ENCOUNTER 2017-09-06 19:44 | Emergency (ER) | payer MEDICAID ==
[2017-09-06 19:50] VITALS: BP 143/76
[2017-09-06 20:14] LABS: Hematocrit 37 % (35-47); Hemoglobin 12.7 g/dl (12.0-16.0); Mean Corpuscular HGB Conc 34 g/dl (31-36); Mean Corpuscular Hemoglobin 31 pg (27-31); Mean Corpuscular Volume 91 fL (80-97); Mean Platelet Volume 8 um3 (7.4-10.4); Red Blood Count 4.12 10^6/ul (4.0-5.4); Red Cell Distribution Width 14 % (10.5-15); White Blood Count 8.1 10^3/ul (3.5-10.8)
[2017-09-06 20:28] LABS: ALT 8 U/L (7-52); AST 12 U/L (13-39); Albumin 4.2 g/dL (3.2-5.2); Alkaline Phosphatase 74 U/L (34-104); Anion Gap 6 mmol/L (2-11); BUN/Creatinine Ratio 18.2 (8-20); Blood Urea Nitrogen 14 mg/dL (6-24); CO2 Carbon Dioxide 28 mmol/L (22-32); Calcium 9.6 mg/dL (8.6-10.3); Chloride 104 mmol/L (101-111); EGFR African American 111.7 (>60); EGFR Non-African American 86.9 (>60); Glucose 94 mg/dL (70-100); Sodium 138 mmol/L (133-145); Total Protein 7.2 g/dL (6.4-8.9)
[2017-09-06 20:46] LABS: Acetaminophen < 15 mcg/mL; Alcohol < 10 mg/dL (<10); Salicylate < 2.50 mg/dL (<30)
[2017-09-06 21:01] LABS: TSH (Thyroid Stimulating Horm) 1.56 mcIU/mL (0.34-5.60)
[2017-09-06] MEDS ORDERED: LORazepam TAB(*) 1 MG PO ONE (21:21)
[2017-09-06] MEDS ORDERED: Nicotine GUM* 2 MG ONE (21:58)
[2017-09-06] MEDS ORDERED: Nicotine GUM* 2 MG PO ONE (21:59)
[2017-09-06 22:00] LABS: Urine Bilirubin Negative (Negative); Urine Glucose Negative (Negative); Urine Nitrite Negative (Negative)
[2017-09-06 22:15] LABS: Benzodiazepine Urine Screen None Detected (None Detect)
[2017-09-07] MEDS ORDERED: Acetaminophen TAB* 325 MG PO ONE (00:39)
--- NOTE | 2017-09-07 01:25 | ED ---
Psychiatric Complaint - HPI Summary HPI Summary: Patient presents to the ED with c/o suicidal ideation, depression and anxiety. Hx of PTSD, anorexia, depressive disorder and borderline personality disorder. Denies ETOH or drug use. She states she has a plan with her psychiatrist that if she is having suicidal thoughts, she needs to come to the ED as opposed to be "forcibly put here by police," so she was willing to come in. Denies physical pain. Currently has suicidal thoughts, denies HI and denies physical pain. Notes to anxiety. - History Of Current Complaint Chief Complaint: EDMentalHealth Time Seen by Provider: 09/06/17 20:01 Hx Obtained From: Patient ?: No Onset/Duration: Sudden Onset Timing: Constant Severity Initially: Moderate Severity Currently: Moderate Character: Manic, Depressed Aggravating Factor(s): Nothing Alleviating Factor(s): Nothing Associated Signs And Symptoms: Positive: Negative Related History: Positive For: Prior Psychiatric Issues Has Suicidal: Reports: Thoughts - Risk Factor(s) Completed Suicide Risk Factors: Negative - Allergies/Home Medications Allergies/Adverse Reactions: Allergies Allergy/AdvReac Type Severity Reaction Status Date / Time No Known Allergies Allergy Verified 04/20/17 13:33 PMH/Surg Hx/FS Hx/Imm Hx Previously Healthy: Yes Endocrine/Hematology History: Denies: Hx Anticoagulant Therapy, Hx Diabetes, Hx Thyroid Disease Cardiovascular History: Reports: Other Cardiovascular Problems/Disorders - RAYNAUDS PHENOMENON Denies: Hx Hypertension, Hx Pacemaker/ICD Respiratory History: Reports: Hx Asthma - Occasional to rare use of Albuterol MDI Denies: Hx Chronic Obstructive Pulmonary Disease (COPD) GI History: Reports: Hx Hiatal Hernia History: Denies: Hx Renal Disease Musculoskeletal History: Reports: Hx Osteoporosis Sensory History: Denies: Hx Contacts or Glasses, Hx Hearing Aid Opthamlomology History: Denies: Hx Contacts or Glasses Neurological History: Reports: Hx Migraine Denies: Hx Dementia, Hx Developmental Delay, Hx Headaches, Hx Nerve Disease, Hx Seizures, Hx Spinal Cord Injury, Hx Transient Ischemic Attacks (TIA), Other Neuro Impairments/Disorders Psychiatric History: Reports: Hx Anxiety, Hx Attention Deficit Hyperactivity Disorder, Hx Depression, Hx Post Traumatic Stress Disorder, Hx Inpatient Treatment, Hx Community Mental Health Tx, Hx Suicide Attempt, Hx Substance Abuse , Other Psychiatric Issues/Disorders - BORDERLINE PERS D/O Denies: Hx Eating Disorder, Hx Panic Disorder, Hx Schizophrenia, Hx Bipolar Disorder, Hx of Violent Episodes Against Others - Surgical History Surgery Procedure, Year, and Place: wisdom teeth removal - Immunization History Date of Tetanus Vaccine: unknown Hx Pertussis Vaccination: No Immunizations Up to Date: Unable to Obtain/Confirm Infectious Disease History: No Infectious Disease History: Denies: Hx Clostridium Difficile, Hx Hepatitis, Hx Human Immunodeficiency Virus (HIV), Hx Shingles, Hx Tuberculosis, Hx Known/Suspected VRE, Hx Known/ Suspected VRSA, History Other Infectious Disease, Traveled Outside the [place] in Last 30 Days - Family History Known Family History: Positive: Other - DEPRESSION, ETOH ABUSE Negative: Cardiac Disease, Hypertension, Diabetes - Social History Occupation: Unemployed Lives: Alone Alcohol Use: None Hx Substance Use: No Substance Use Type: Reports: None Hx Tobacco Use: Yes - 8 YEARS, 1/2 PACK A DAY Smoking Status (MU): Light Every Day Tobacco Smoker Type: Cigarettes Amount Used/How Often: 1/2 ppd Length of Time of Smoking/Using Tobacco: 10 years Have You Smoked in the Last Year: Yes - Smoked yesterday 05/31/16; "1/2 pack-a- day smoker" Review of Systems Constitutional: Negative Negative: Fever, Chills, Fatigue Cardiovascular: Negative Respiratory: Negative Positive: no symptoms reported, see HPI Musculoskeletal: Negative Neurological: Negative Positive: Anxious, Depressed All Other Systems Reviewed And Are Negative: Yes Physical Exam Triage Information Reviewed: Yes Vital Signs On Initial Exam: Initial Vitals Temp Pulse Resp BP Pulse Ox 97.7 F 102 14 143/76 100 09/06/17 19:48 09/06/17 19:48 09/06/17 19:48 09/06/17 19:48 09/06/17 19:48 Vital Signs Reviewed: Yes Appearance: Positive: Well-Appearing, Well-Nourished Skin: Positive: Warm, Skin Color Reflects Adequate Perfusion Neck: Positive: Supple, No Lymphadenopathy Respiratory/Lung Sounds: Positive: Clear to Auscultation, Breath Sounds Present Cardiovascular: Positive: RRR, Pulses are Symmetrical in both Upper and Lower Extremities Musculoskeletal: Positive: Strength/ROM Intact Neurological: Positive: Speech Normal Psychiatric: Positive: Affect/Mood Appropriate, Anxious, Depressed Diagnostics - Vital Signs Vital Signs Temp Pulse Resp BP Pulse Ox 09/06/17 21:45 16 09/06/17 19:48 97.7 F 102 14 143/76 100 - Laboratory Lab Results: Lab Results 09/06/17 09/06/17 09/06/17 Range/Units 20:05 20:05 21:45 WBC 8.1 (3.5-10.8) 10^3/ul RBC 4.12 (4.0-5.4) 10^6/ul Hgb 12.7 (12.0-16.0) g/dl Hct 37 (35-47) % MCV 91 (80-97) fL MCH 31 (27-31) pg MCHC 34 (31-36) g/dl RDW 14 (10.5-15) % Plt Count 286 (150-450) 10^3/ul MPV 8 (7.4-10.4) um3 Neut % (Auto) 42.6 (38-83) % Lymph % (Auto) 36.9 (25-47) % [place] % (Auto) 10.7 H (1-9) % Eos % (Auto) 8.4 H (0-6) % Baso % (Auto) 1.4 (0-2) % Absolute Neuts (auto) 3.4 (1.5-7.7) 10^3/ul Absolute Lymphs (auto) 3.0 (1.0-4.8) 10^3/ul Absolute Monos (auto) 0.9 H (0-0.8) 10^3/ul Absolute Eos (auto) 0.7 H (0-0.6) 10^3/ul Absolute Basos (auto) 0.1 (0-0.2) 10^3/ul Absolute Nucleated RBC 0 10^3/ul Nucleated RBC % 0 Sodium 138 (133-145) mmol/L Potassium 4.0 (3.5-5.0) mmol/L Chloride 104 (101-111) mmol/L Carbon Dioxide 28 (22-32) mmol/L Anion Gap 6 (2-11) mmol/L BUN 14 (6-24) mg/dL Creatinine 0.77 (0.51-0.95) mg/dL Est GFR ( Amer) 111.7 (>60) Est GFR (Non-Af Amer) 86.9 (>60) BUN/Creatinine Ratio 18.2 (8-20) Glucose 94 (70-100) mg/dL Calcium 9.6 (8.6-10.3) mg/dL Total Bilirubin 0.30 (0.2-1.0) mg/dL AST 12 L (13-39) U/L ALT 8 (7-52) U/L Alkaline Phosphatase 74 (34-104) U/L Total Protein 7.2 (6.4-8.9) g/dL Albumin 4.2 (3.2-5.2) g/dL Globulin 3.0 (2-4) g/dL Albumin/Globulin Ratio 1.4 (1-3) TSH 1.56 (0.34-5.60) mcIU/mL Urine Color Urine Appearance Urine pH (5-9) Ur Specific [place] (1.010-1.030) Urine Protein (Negative) Urine Ketones (Negative) Urine Blood (Negative) Urine Nitrate (Negative) Urine Bilirubin (Negative) Urine Urobilinogen (Negative) Ur Leukocyte Esterase (Negative) Urine Glucose (Negative) Salicylates < 2.50 (<30) mg/dL Urine Opiates Screen None detected (None Detect) Acetaminophen < 15 mcg/mL Ur Barbiturates Screen None detected (None Detect) Ur Phencyclidine Scrn None detected (None Detect) Ur Amphetamines Screen None detected (None Detect) U Benzodiazepines Scrn None detected (None Detect) Urine Cocaine Screen None detected (None Detect) U Cannabinoids Screen None detected (None Detect) Serum Alcohol < 10 (<10) mg/dL 09/06/17 Range/Units 21:45 WBC (3.5-10.8) 10^3/ul RBC (4.0-5.4) 10^6/ul Hgb (12.0-16.0) g/dl Hct (35-47) % MCV (80-97) fL MCH (27-31) pg MCHC (31-36) g/dl RDW (10.5-15) % Plt Count (150-450) 10^3/ul MPV (7.4-10.4) um3 Neut % (Auto) (38-83) % Lymph % (Auto) (25-47) % [place] % (Auto) (1-9) % Eos % (Auto) (0-6) % Baso % (Auto) (0-2) % Absolute Neuts (auto) (1.5-7.7) 10^3/ul Absolute Lymphs (auto) (1.0-4.8) 10^3/ul Absolute Monos (auto) (0-0.8) 10^3/ul Absolute Eos (auto) (0-0.6) 10^3/ul Absolute Basos (auto) (0-0.2) 10^3/ul Absolute Nucleated RBC 10^3/ul Nucleated RBC % Sodium (133-145) mmol/L Potassium (3.5-5.0) mmol/L Chloride (101-111) mmol/L Carbon Dioxide (22-32) mmol/L Anion Gap (2-11) mmol/L BUN (6-24) mg/dL Creatinine (0.51-0.95) mg/dL Est GFR ( Amer) (>60) Est GFR (Non-Af Amer) (>60) BUN/Creatinine Ratio (8-20) Glucose (70-100) mg/dL Calcium (8.6-10.3) mg/dL Total Bilirubin (0.2-1.0) mg/dL AST (13-39) U/L ALT (7-52) U/L Alkaline Phosphatase (34-104) U/L Total Protein (6.4-8.9) g/dL Albumin (3.2-5.2) g/dL Globulin (2-4) g/dL Albumin/Globulin Ratio (1-3) TSH (0.34-5.60) mcIU/mL Urine Color Yellow Urine Appearance Clear Urine pH 6.0 (5-9) Ur Specific [place] 1.008 L (1.010-1.030) Urine Protein Negative (Negative) Urine Ketones Negative (Negative) Urine Blood Negative (Negative) Urine Nitrate Negative (Negative) Urine Bilirubin Negative (Negative) Urine Urobilinogen Negative (Negative) Ur Leukocyte Esterase Negative (Negative) Urine Glucose Negative (Negative) Salicylates (<30) mg/dL Urine Opiates Screen (None Detect) Acetaminophen mcg/mL Ur Barbiturates Screen (None Detect) Ur Phencyclidine Scrn (None Detect) Ur Amphetamines Screen (None Detect) U Benzodiazepines Scrn (None Detect) Urine Cocaine Screen (None Detect) U Cannabinoids Screen (None Detect) Serum Alcohol (<10) mg/dL Result Diagrams: 09/06/17 20:05 09/06/17 20:05 Lab Statement: Any lab studies that have been ordered have been reviewed, and results considered in the medical decision making process. Course/Dx - Course Course Of Treatment: Patient presents to the ED with CC of depression, anxiety and SI. Long history of such. Borderline personality. She endorses anxiety at this time. She is given ativan 1mg with effect. Cleared for MHU. Upon examination, the mental health unit and Dr. Lion has deemed her safe to be discharged and as a borderline personality patient, will not benefit from staying as an inpatient. She is upset with discharge and wants to stay as inpatient. Awaiting a bus to take her to [place] where she resides. - Differential Dx/Clinical Impression Differential Diagnosis/HQI/PQRI: Positive: Suicidal Ideation Provider Diagnosis: Borderline personality disorder Discharge - Discharge Plan Condition: Stable Disposition: HOME Patient Education Materials: Suicide Prevention for Adults (ED) Referrals: No Primary Care Phys,NOPCP [Primary Care Provider] - Additional Instructions: Per completion of a mental health evaluation, you are cleared for release and do not require inpatient psychiatric hospitalization at this time. Please go to nearest emergency room or call 911 if safety concerns arise or condition worsens. IMPORTANT PHONE NUMBERS: [facility] Behavioral Services Unit: [facility] Emergency Room Flex Unit: Suicide Prevention and Crisis Services: National Suicide Prevention Lifeline: (224) 769-VCMC (9184) National Crisis Text Line: HOME to 481019 [facility]: [facility] Mental Health Association: [facility] Police: [facility]: [facility] Health Department, [facility]: [facility] Suicide Prevention Hotline: 180.140.1390 [place].: OUTPATIENT SERVICES You have been referred to your therapist, Cherie Lo. It is our recommendation that you call Cherie upon discharge to secure/confirm your weekly appointment for the upcoming week. If you require further assistance connecting to outpatient providers, please contact our Mental Health Unit at . No changes or adjustments were made to your medication regimen during this evaluation. Continue medications as prescribed by your outpatient providers. YAW Segovia Address: [address] [place] [id number] [email or web address]
== END 2017-09-07 01:45 | disposition home or self-care (01) ==
LOC: ED 19:44
DX: F60.3 Borderline personality disorder (principal); F41.8 Other specified anxiety disorders
CPT/HCPCS: 36415; 80053; 80307; 80320; 80329; 81003; 84443; 85025; 99285; A9270-GY; G0480

== ENCOUNTER 2017-12-28 20:20 | Inpatient (IN) | payer OTHER ==
[2017-12-28 21:04] LABS: ABS Basophils 0.1 10^3/ul (0-0.2); ABS Eosinophils 0.5 10^3/ul (0-0.6); ABS Lymphocytes 2.4 10^3/ul (1.0-4.8); ABS Monocytes 0.8 10^3/ul (0-0.8); ABS Neutrophils 3.6 10^3/ul (1.5-7.7); ABS Nucleated RBC 0 10^3/ul; Eosinophil % 6.7 % (0-6); Hematocrit 37 % (35-47); Hemoglobin 12.6 g/dl (12.0-16.0); Lymphocyte % 32.8 % (25-47); Mean Corpuscular HGB Conc 34 g/dl (31-36); Mean Corpuscular Hemoglobin 31 pg (27-31); Mean Corpuscular Volume 91 fL (80-97); Mean Platelet Volume 9 um3 (7.4-10.4); Nucleated Red Blood Cells % 0; Platelet Count 306 10^3/ul (150-450); Red Cell Distribution Width 14 % (10.5-15); White Blood Count 7.4 10^3/ul (3.5-10.8)
[2017-12-28 21:08] LABS: Urine Appearance Cloudy; Urine Blood Negative (Negative); Urine Color Yellow; Urine Ketones Trace (Negative); Urine Protein Negative (Negative); Urine Specific Gravity 1.021 (1.010-1.030); Urine Urobilinogen Negative (Negative)
[2017-12-28 21:19] LABS: EGFR Non-African American 95.4 (>60)
[2017-12-28] MEDS ORDERED: LORazepam TAB(*) 1 MG PO ONE (23:50)
[2017-12-29] MEDS: Nicotine GUM* 2 MG PO PRN ×3 (00:28→21:59)
[2017-12-29] MEDS ORDERED: QUEtiapine TAB* 100 MG PO ONE (01:00)
--- NOTE | 2017-12-29 04:04 | ED ---
Tima Benz Jennifer, scribed for Iban Rondon on 12/28/17 at 2054 . Psychiatric Complaint - HPI Summary HPI Summary: The patient is a 32 year old female who presents to the ED with suicidal ideation today. The patient reports she tried to hang herself tonight but did not succeed. She explains that she didnt tie the knot good enough and fell. The patient has some redness to her neck. She denies auditory hallucinations. - History Of Current Complaint Chief Complaint: EDMentalHealth Time Seen by Provider: 12/28/17 20:31 Hx Obtained From: Patient Onset/Duration: Still Present Timing: Frequency Of Episodes Severity Initially: Mild Severity Currently: Mild Character: Depressed Aggravating Factor(s): Nothing Alleviating Factor(s): Nothing Related History: Positive For: Prior Psychiatric Issues Has Suicidal: Reports: Thoughts, With A Plan - Allergies/Home Medications Allergies/Adverse Reactions: Allergies Allergy/AdvReac Type Severity Reaction Status Date / Time No Known Allergies Allergy Verified 04/20/17 13:33 PMH/Surg Hx/FS Hx/Imm Hx Endocrine/Hematology History: Denies: Hx Anticoagulant Therapy, Hx Diabetes, Hx Thyroid Disease Cardiovascular History: Reports: Other Cardiovascular Problems/Disorders - RAYNAUDS PHENOMENON Denies: Hx Hypertension, Hx Pacemaker/ICD Respiratory History: Reports: Hx Asthma - Occasional to rare use of Albuterol MDI Denies: Hx Chronic Obstructive Pulmonary Disease (COPD) GI History: Reports: Hx Hiatal Hernia History: Denies: Hx Renal Disease Musculoskeletal History: Reports: Hx Osteoporosis Sensory History: Denies: Hx Contacts or Glasses, Hx Hearing Aid Opthamlomology History: Denies: Hx Contacts or Glasses Neurological History: Reports: Hx Migraine Denies: Hx Dementia, Hx Developmental Delay, Hx Headaches, Hx Nerve Disease, Hx Seizures, Hx Spinal Cord Injury, Hx Transient Ischemic Attacks (TIA), Other Neuro Impairments/Disorders Psychiatric History: Reports: Hx Anxiety, Hx Attention Deficit Hyperactivity Disorder, Hx Eating Disorder - Anorexia, Hx Depression, Hx Post Traumatic Stress Disorder, Hx Inpatient Treatment, Hx Community Mental Health Tx, Hx Suicide Attempt, Hx Substance Abuse, Other Psychiatric Issues/Disorders - BORDERLINE PERS D/O Denies: Hx Panic Disorder, Hx Schizophrenia, Hx Bipolar Disorder, Hx of Violent Episodes Against Others - Surgical History Surgery Procedure, Year, and Place: wisdom teeth removal - Immunization History Date of Tetanus Vaccine: unknown Date of Influenza Vaccine: none Infectious Disease History: No Infectious Disease History: Denies: Hx Clostridium Difficile, Hx Hepatitis, Hx Human Immunodeficiency Virus (HIV), Hx Shingles, Hx Tuberculosis, Hx Known/Suspected VRE, Hx Known/ Suspected VRSA, History Other Infectious Disease, Traveled Outside the [place] in Last 30 Days - Family History Known Family History: Positive: Other - DEPRESSION, ETOH ABUSE Negative: Cardiac Disease, Hypertension, Diabetes - Social History Alcohol Use: None Hx Substance Use: No Substance Use Type: Reports: None Hx Tobacco Use: Yes - 8 YEARS, 1/2 PACK A DAY Smoking Status (MU): Light Every Day Tobacco Smoker Type: Cigarettes Amount Used/How Often: 1/2 ppd Length of Time of Smoking/Using Tobacco: 10 years Have You Smoked in the Last Year: Yes - Smoked yesterday 05/31/16; "1/2 pack-a- day smoker" Review of Systems Positive: Other - Abrasions on neck Positive: Depressed, Other - Suicidal All Other Systems Reviewed And Are Negative: Yes Physical Exam - Summary Physical Exam Summary: Appearance: Well appearing, no pain distress Skin: warm, dry, reflects adequate perfusion Head/face: normal Eyes: EOMI, FRANCIS ENT: normal Neck: supple, non-tender. Abrasions on the neck. Respiratory: CTA, breath sounds present Cardiovascular: RRR, pulses symmetrical Abdomen: non-tender, soft Bowel: present Musculoskeletal: normal, strength/ROM intact Neuro: normal, sensory motor intact, A&Ox3 Triage Information Reviewed: Yes Vital Signs On Initial Exam: Initial Vitals Temp Pulse Resp BP Pulse Ox 99.0 F 110 16 122/82 100 12/28/17 20:23 12/28/17 20:23 12/28/17 20:23 12/28/17 20:23 12/28/17 20:23 Vital Signs Reviewed: Yes Diagnostics - Vital Signs Vital Signs Temp Pulse Resp BP Pulse Ox 12/28/17 20:23 99.0 F 110 16 122/82 100 - Laboratory Lab Results: Lab Results 12/28/17 12/28/17 12/28/17 Range/Units 20:47 20:47 20:55 WBC (3.5-10.8) 10^3/ul RBC (4.0-5.4) 10^6/ul Hgb (12.0-16.0) g/dl Hct (35-47) % MCV (80-97) fL MCH (27-31) pg MCHC (31-36) g/dl RDW (10.5-15) % Plt Count (150-450) 10^3/ul MPV (7.4-10.4) um3 Neut % (Auto) (38-83) % Lymph % (Auto) (25-47) % [place] % (Auto) (0-7) % Eos % (Auto) (0-6) % Baso % (Auto) (0-2) % Absolute Neuts (auto) (1.5-7.7) 10^3/ul Absolute Lymphs (auto) (1.0-4.8) 10^3/ul Absolute Monos (auto) (0-0.8) 10^3/ul Absolute Eos (auto) (0-0.6) 10^3/ul Absolute Basos (auto) (0-0.2) 10^3/ul Absolute Nucleated RBC 10^3/ul Nucleated RBC % Sodium 136 (133-145) mmol/L Potassium 4.1 (3.5-5.0) mmol/L Chloride 101 (101-111) mmol/L Carbon Dioxide 30 (22-32) mmol/L Anion Gap 5 (2-11) mmol/L BUN 14 (6-24) mg/dL Creatinine 0.71 (0.51-0.95) mg/dL Est GFR ( Amer) 122.7 (>60) Est GFR (Non-Af Amer) 95.4 (>60) BUN/Creatinine Ratio 19.7 (8-20) Glucose 84 (70-100) mg/dL Calcium 9.8 (8.6-10.3) mg/dL Total Bilirubin 0.30 (0.2-1.0) mg/dL AST 13 (13-39) U/L ALT 9 (7-52) U/L Alkaline Phosphatase 71 (34-104) U/L Total Protein 7.3 (6.4-8.9) g/dL Albumin 4.5 (3.2-5.2) g/dL Globulin 2.8 (2-4) g/dL Albumin/Globulin Ratio 1.6 (1-3) TSH 1.22 (0.34-5.60) mcIU/mL Beta HCG, Quant < 0.60 mIU/mL Urine Color Yellow Urine Appearance Cloudy Urine pH 6.0 (5-9) Ur Specific [place] 1.021 (1.010-1.030) Urine Protein Negative (Negative) Urine Ketones Trace H (Negative) Urine Blood Negative (Negative) Urine Nitrate Negative (Negative) Urine Bilirubin Negative (Negative) Urine Urobilinogen Negative (Negative) Ur Leukocyte Esterase Trace H (Negative) Urine WBC (Auto) Trace(0-5/hpf) (Absent) Urine RBC (Auto) Trace(0-2/hpf) (Absent) Ur Squamous Epith Cells Present H (Absent) Urine Bacteria 1+ H (Absent) Urine Glucose Negative (Negative) Salicylates < 2.50 (<30) mg/dL Urine Opiates Screen None detected (None Detect) Acetaminophen < 15 mcg/mL Ur Barbiturates Screen None detected (None Detect) Ur Phencyclidine Scrn None detected (None Detect) Ur Amphetamines Screen None detected (None Detect) U Benzodiazepines Scrn None detected (None Detect) Urine Cocaine Screen None detected (None Detect) U Cannabinoids Screen None detected (None Detect) Serum Alcohol < 10 (<10) mg/dL 12/28/17 Range/Units 20:55 WBC 7.4 (3.5-10.8) 10^3/ul RBC 4.10 (4.0-5.4) 10^6/ul Hgb 12.6 (12.0-16.0) g/dl Hct 37 (35-47) % MCV 91 (80-97) fL MCH 31 (27-31) pg MCHC 34 (31-36) g/dl RDW 14 (10.5-15) % Plt Count 306 (150-450) 10^3/ul MPV 9 (7.4-10.4) um3 Neut % (Auto) 48.7 (38-83) % Lymph % (Auto) 32.8 (25-47) % [place] % (Auto) 11.1 H (0-7) % Eos % (Auto) 6.7 H (0-6) % Baso % (Auto) 0.7 (0-2) % Absolute Neuts (auto) 3.6 (1.5-7.7) 10^3/ul Absolute Lymphs (auto) 2.4 (1.0-4.8) 10^3/ul Absolute Monos (auto) 0.8 (0-0.8) 10^3/ul Absolute Eos (auto) 0.5 (0-0.6) 10^3/ul Absolute Basos (auto) 0.1 (0-0.2) 10^3/ul Absolute Nucleated RBC 0 10^3/ul Nucleated RBC % 0 Sodium (133-145) mmol/L Potassium (3.5-5.0) mmol/L Chloride (101-111) mmol/L Carbon Dioxide (22-32) mmol/L Anion Gap (2-11) mmol/L BUN (6-24) mg/dL Creatinine (0.51-0.95) mg/dL Est GFR ( Amer) (>60) Est GFR (Non-Af Amer) (>60) BUN/Creatinine Ratio (8-20) Glucose (70-100) mg/dL Calcium (8.6-10.3) mg/dL Total Bilirubin (0.2-1.0) mg/dL AST (13-39) U/L ALT (7-52) U/L Alkaline Phosphatase (34-104) U/L Total Protein (6.4-8.9) g/dL Albumin (3.2-5.2) g/dL Globulin (2-4) g/dL Albumin/Globulin Ratio (1-3) TSH (0.34-5.60) mcIU/mL Beta HCG, Quant mIU/mL Urine Color Urine Appearance Urine pH (5-9) Ur Specific [place] (1.010-1.030) Urine Protein (Negative) Urine Ketones (Negative) Urine Blood (Negative) Urine Nitrate (Negative) Urine Bilirubin (Negative) Urine Urobilinogen (Negative) Ur Leukocyte Esterase (Negative) Urine WBC (Auto) (Absent) Urine RBC (Auto) (Absent) Ur Squamous Epith Cells (Absent) Urine Bacteria (Absent) Urine Glucose (Negative) Salicylates (<30) mg/dL Urine Opiates Screen (None Detect) Acetaminophen mcg/mL Ur Barbiturates Screen (None Detect) Ur Phencyclidine Scrn (None Detect) Ur Amphetamines Screen (None Detect) U Benzodiazepines Scrn (None Detect) Urine Cocaine Screen (None Detect) U Cannabinoids Screen (None Detect) Serum Alcohol (<10) mg/dL Result Diagrams: 02/24/18 20:55 12/28/17 20:55 Lab Statement: Any lab studies that have been ordered have been reviewed, and results considered in the medical decision making process. Course/Dx - Course Assessment/Plan: The patient is a 32 year old female who presents to the ED with suicidal ideation today. The patient reports she tried to hang herself tonight but did not succeed. She has abrasions on her neck. Bloodwork and Urinalysis were obtained. The patient is diagnosed with Depression and Suicidal ideation. The patient was admitted to [facility]. - Differential Dx/Clinical Impression Differential Diagnosis/HQI/PQRI: Positive: Depression, Suicide Attempt, Suicidal Ideation, Other Provider Diagnosis: Depression, Suicidal ideation, Abrasion of neck Discharge - Discharge Plan Condition: Good Disposition: PSYCHIATRIC FACILITY[place] [place] Referrals: No Primary Care Phys,NOPCP [Primary Care Provider] - The documentation as recorded by the Tima ramos Jennifer accurately reflects the service I personally performed and the decisions made by , Iban Rondon.
[2017-12-29] MEDS ORDERED: buPROPion TAB* 100 MG PO ONE (08:24)
--- NOTE | 2017-12-29 09:07 | PN ---
ED Flex Patient Progress Note Date of Service: 12/29/17 Subjective: This is a 32 year-old F who is pending disposition by psychiatrist and [facility] secondary to suicidal ideation and attempt. Pt offers no complaints at this time. Waiting on morning medications. Objective: Vitals: Most recent vital signs documented below. General NAD, Alert and oriented x3. Heart: rrr at 90 bpm Lungs: CTA or with rales, rhonchi, wheezing Laboratory: Current laboratory results documented below. Assessment: pending disposition whether admitted or transferred, or discharged although unlikely. suicidal ideation/attempt Plan: Pending psychiatric disposition after speaking with psychiatrist. will follow up daily. Vital Signs Temp Pulse Resp BP Pulse Ox 99.1 F 100 16 101/66 100 12/29/17 08:18 12/29/17 08:18 12/29/17 08:18 12/29/17 08:18 12/29/17 08:18 Lab Results - Entire Visit 12/28/17 12/28/17 12/28/17 20:55 20:55 20:47 WBC 7.4 RBC 4.10 Hgb 12.6 Hct 37 MCV 91 MCH 31 MCHC 34 RDW 14 Plt Count 306 MPV 9 Neut % (Auto) 48.7 Lymph % (Auto) 32.8 [place] % (Auto) 11.1 H Eos % (Auto) 6.7 H Baso % (Auto) 0.7 Absolute Neuts (auto) 3.6 Absolute Lymphs (auto) 2.4 Absolute Monos (auto) 0.8 Absolute Eos (auto) 0.5 Absolute Basos (auto) 0.1 Absolute Nucleated RBC 0 Nucleated RBC % 0 Sodium 136 Potassium 4.1 Chloride 101 Carbon Dioxide 30 Anion Gap 5 BUN 14 Creatinine 0.71 Est GFR ( Amer) 122.7 Est GFR (Non-Af Amer) 95.4 BUN/Creatinine Ratio 19.7 Glucose 84 Calcium 9.8 Total Bilirubin 0.30 AST 13 ALT 9 Alkaline Phosphatase 71 Total Protein 7.3 Albumin 4.5 Globulin 2.8 Albumin/Globulin Ratio 1.6 TSH 1.22 Beta HCG, Quant < 0.60 Urine Color Yellow Urine Appearance Cloudy Urine pH 6.0 Ur Specific [place] 1.021 Urine Protein Negative Urine Ketones Trace H Urine Blood Negative Urine Nitrate Negative Urine Bilirubin Negative Urine Urobilinogen Negative Ur Leukocyte Esterase Trace H Urine WBC (Auto) Trace(0-5/hpf) Urine RBC (Auto) Trace(0-2/hpf) Ur Squamous Epith Cells Present H Urine Bacteria 1+ H Urine Glucose Negative Salicylates < 2.50 Urine Opiates Screen Acetaminophen < 15 Ur Barbiturates Screen Ur Phencyclidine Scrn Ur Amphetamines Screen U Benzodiazepines Scrn Urine Cocaine Screen U Cannabinoids Screen Serum Alcohol < 10 12/28/17 20:47 WBC RBC Hgb Hct MCV MCH MCHC RDW Plt Count MPV Neut % (Auto) Lymph % (Auto) [place] % (Auto) Eos % (Auto) Baso % (Auto) Absolute Neuts (auto) Absolute Lymphs (auto) Absolute Monos (auto) Absolute Eos (auto) Absolute Basos (auto) Absolute Nucleated RBC Nucleated RBC % Sodium Potassium Chloride Carbon Dioxide Anion Gap BUN Creatinine Est GFR ( Amer) Est GFR (Non-Af Amer) BUN/Creatinine Ratio Glucose Calcium Total Bilirubin AST ALT Alkaline Phosphatase Total Protein Albumin Globulin Albumin/Globulin Ratio TSH Beta HCG, Quant Urine Color Urine Appearance Urine pH Ur Specific [place] Urine Protein Urine Ketones Urine Blood Urine Nitrate Urine Bilirubin Urine Urobilinogen Ur Leukocyte Esterase Urine WBC (Auto) Urine RBC (Auto) Ur Squamous Epith Cells Urine Bacteria Urine Glucose Salicylates Urine Opiates Screen None detected Acetaminophen Ur Barbiturates Screen None detected Ur Phencyclidine Scrn None detected Ur Amphetamines Screen None detected U Benzodiazepines Scrn None detected Urine Cocaine Screen None detected U Cannabinoids Screen None detected Serum Alcohol
[2017-12-29] MEDS ORDERED: Al Hydrox/Mg Hydrox/Simet LIQ* 30 ML UDC PO PRN (17:08)
[2017-12-29] MEDS ORDERED: Acetaminophen TAB* 325 MG PO PRN (17:08)
[2017-12-29] MEDS ORDERED: Albuterol HFA INHALER* 8 gm MDI INH PRN (17:17)
[2017-12-29] MEDS: Amphetamine/Dextroamph ER(NF) 10 MG CAP.ER PO SCH (18:45)
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
[2017-12-30] MEDS: QUEtiapine TAB* 100 MG PO PRN ×2 (02:54→23:18)
[2017-12-30] MEDS: Nicotine GUM* 2 MG PO PRN ×5 (02:54→23:18)
[2017-12-30] MEDS: Amphetamine/Dextroamph ER(NF) 10 MG CAP.ER PO SCH (08:27)
[2017-12-30] MEDS: Vitamin THERAPEUTIC TAB PO SCH (08:27)
[2017-12-30] MEDS: BuPROPion XL* 300 MG TAB.XL PO SCH (08:34)
--- NOTE | 2017-12-30 16:00 | PN ---
Subjective - Subjective Service Type: [id number] Hosp care 25 min moderate complexity Subjective: Patient presents with bright affect, incongruent with topic. She reports primary stressor of social isolation, along with recent denial of SSD. She endorses depressed mood with suicidal ideation. She states she and her therapist are working on identifying a support network and groups to increase her social needs. Patient denies active anorexia symptoms and states that she maintains a consistent diet. Patient endorses hypervigilance and nightmares. She denies recent dating and identifies as homosexual. Patient requests to be allowed staff pass. She is notified that she must be free from suicidal gestures for at least 24 hours and the decision is made during treatment team. Objective - Appearance Appearance: Thin Framed Dysmorphic Features: Yes Hygiene: Normal Grooming: Fairly Well Kept - Behavior Psychomotor Activities: Normal Exhibits Abnormal Movement: No - Attitude and Relatedness Attitude and Relatedness: Cooperative Eye Contact: Good - Speech Quality: Unpressured Latencies: Normal Quantity: Appropriate - Mood Patient's Decription of Mood: "Okay" - Affect Observed Affect: Good Affect Consistent with: Euthymia - Thought Process Patient's Thought Process: Circumstantial Thought Content: Yes Passive Wish, No Suicidal Planning, No Homicidal Ideation, No Paranoid Ideation - Sensorium Experiencing Hallucinations: No, Sensorium is Clear Type of Hallucinations: Visual: No, Auditory: No, Command: No - Level of Consciousness Level of Consciousness: Alert Orientation: Yes Intact, Yes Orientated to Time, Yes Orientated to Place, Yes Orientated to Person - Impulse Control Impulse Control: Tenuous - Insight and Judgement Insight and Judgement: Fair - Group Participation Particating in Group Activities: No - Medication Management Medication Management Adherence: Yes Assessment - Assessment Merits Inpatient Hospitalization: For Immediate Safety, For Stabilization, For Discharge Planning Inpatient DSM-V Dx: F43.12 Clinical Impression: 32yo white female with history of PTSD, MDD, anorexia nervosa, borderline personality d/o. She has a history of multiple suicide attempts and psychiatric hospitalizations. She presented to ED with suicidal ideation, plans and preparations. She merits hospitalization for immediate safety and stabilization. Plan - Plan Treatment Plan: Name: MAGALY BEARD Birthdate: 1985 [id number] continue acute intensive psychiatric treatment. continue current medications. discharge planning to include family and outpatient providers. Continued Medication Management: Continue Outpt Medication Medications: Current Medications Acetaminophen (Tylenol Tab*) 650 mg PO Q4H PRN PRN Reason: PAIN or TEMP > 101 F Al Hydrox/Mg Hydrox/Simethicone (Maalox Plus*) 30 ml PO Q4H PRN PRN Reason: INDIGESTION Albuterol (Ventolin Hfa Inhaler*) 2 puff INH Q4H PRN PRN Reason: SOB/WHEEZING Amphetamine/Dextroamphetamine (Adderal Xr (Nf)) 40 mg PO DAILY [facility] Last Admin: 12/30/17 08:27 Dose: 40 mg Bupropion HCl (Bupropion Xl*) 300 mg PO DAILY [facility] Last Admin: 12/30/17 08:34 Dose: Not Given Multivitamins (Theragran Tab*) 1 tab PO DAILY [facility] Last Admin: 12/30/17 08:27 Dose: Not Given Nicotine Polacrilex (Nicotine Gum*) 2 mg PO Q2H PRN PRN Reason: CRAVING Last Admin: 12/30/17 12:31 Dose: 2 mg Quetiapine Fumarate (Seroquel Tab*) 100 mg PO BEDTIME PRN PRN Reason: .insomnia Last Admin: 12/30/17 02:54 Dose: 100 mg Zolpidem Tartrate (Ambien Tab*) 10 mg PO BEDTIME PRN PRN Reason: INSOMNIA - Discharge Plan Discharge Plan: Outpatient Follow Up Outpatient Program: Private Clinician(s)
[2017-12-30] MEDS: Zolpidem TAB* 10 MG PO PRN (23:18)
[2017-12-31] MEDS: Nicotine GUM* 2 MG PO PRN ×6 (07:35→23:48)
[2017-12-31] MEDS: Vitamin THERAPEUTIC TAB PO SCH (07:35)
[2017-12-31] MEDS: Amphetamine/Dextroamph ER(NF) 10 MG CAP.ER PO SCH (07:36)
[2017-12-31] MEDS: BuPROPion XL* 300 MG TAB.XL PO SCH (07:37)
--- NOTE | 2017-12-31 11:46 | PN ---
MHU: Group Therapy Note - Service Type Service Type: [id number] Group Psychotherapy - Cognitive Behavioral Group Therapy ( CBT):Patient was attentive and participatory in CBT programming this morning, and remained in good behavioral control. Patient expressed positive insights regarding relevant treatment interventions and goals.
--- NOTE | 2017-12-31 15:04 | PN ---
Subjective - Subjective Service Type: [id number] Hosp care 25 min moderate complexity Subjective: Magaly reports improved mood and attributes this to sleeping well last night. She denies SI or passive wish. She reports her primary barriers to functioning are "my anxiety and my PTSD." Real Estate Appraiser Supervisor expresses concern about use of stimulants in light of history of anorexia and no immediate need. Patient minimizes concerns and states that she is eating healthily. She states that she often had side effects to most other medications. Patient states she is hoping to be able to be discharged and be able to attend the appt with her therapist in [place] tomorrow. Real Estate Appraiser Supervisor spoke with outpatient social worker psychiatric, Malu Yang. Discussed current psychopharm and history. She reports Magaly is very knowledgeable and hesitant to medication changes. She states that Magaly was very much hoping to obtain disability benefits then move to [place]. Malu reports that Magaly is often triggered in [place]. Objective - Appearance Appearance: Thin Framed Dysmorphic Features: No Hygiene: Normal Grooming: Fairly Well Kept - Behavior Psychomotor Activities: Normal Exhibits Abnormal Movement: No - Attitude and Relatedness Attitude and Relatedness: Cooperative Eye Contact: Good - Speech Quality: Unpressured Latencies: Normal Quantity: Appropriate - Mood Patient's Decription of Mood: "Good" - Affect Observed Affect: Good Affect Consistent with: Euthymia - Thought Process Patient's Thought Process: Coherent, Goal Directed Thought Content: No Passive Wish, No Suicidal Planning, No Homicidal Ideation, No Paranoid Ideation - Sensorium Experiencing Hallucinations: No, Sensorium is Clear Type of Hallucinations: Visual: No, Auditory: No, Command: No - Level of Consciousness Level of Consciousness: Alert Orientation: Yes Intact, Yes Orientated to Time, Yes Orientated to Place, Yes Orientated to Person - Impulse Control Impulse Control: Intact - in this setting - Insight and Judgement Insight and Judgement: Poor - Group Participation Particating in Group Activities: No - Medication Management Medication Management Adherence: Yes Assessment - Assessment Merits Inpatient Hospitalization: For Immediate Safety, For Stabilization, For Discharge Planning Inpatient DSM-V Dx: F43.12 Clinical Impression: 32yo white female with history of PTSD, MDD, anorexia nervosa, borderline personality d/o. She has a history of multiple suicide attempts and psychiatric hospitalizations. She presented to ED with suicidal ideation, plans and preparations. She merits hospitalization for immediate safety and stabilization. Plan - Plan Treatment Plan: Name: MAGALY BEARD Birthdate: 1985 [id number] continue acute intensive psychiatric treatment. continue current medications. decrease to q30min observation and allow staff pass. Continued Medication Management: Continue Outpt Medication Medications: Current Medications Acetaminophen (Tylenol Tab*) 650 mg PO Q4H PRN PRN Reason: PAIN or TEMP > 101 F Al Hydrox/Mg Hydrox/Simethicone (Maalox Plus*) 30 ml PO Q4H PRN PRN Reason: INDIGESTION Albuterol (Ventolin Hfa Inhaler*) 2 puff INH Q4H PRN PRN Reason: SOB/WHEEZING Amphetamine/Dextroamphetamine (Adderal Xr (Nf)) 40 mg PO DAILY [facility] Last Admin: 12/31/17 07:36 Dose: 40 mg Bupropion HCl (Bupropion Xl*) 300 mg PO DAILY [facility] Last Admin: 12/31/17 07:37 Dose: Not Given Multivitamins (Theragran Tab*) 1 tab PO DAILY [facility] Last Admin: 12/31/17 07:35 Dose: 1 tab Nicotine Polacrilex (Nicotine Gum*) 2 mg PO Q2H PRN PRN Reason: CRAVING Last Admin: 12/31/17 11:51 Dose: 2 mg Quetiapine Fumarate (Seroquel Tab*) 100 mg PO BEDTIME PRN PRN Reason: .insomnia Last Admin: 12/30/17 23:18 Dose: 100 mg Zolpidem Tartrate (Ambien Tab*) 10 mg PO BEDTIME PRN PRN Reason: INSOMNIA Last Admin: 12/30/17 23:18 Dose: 10 mg - Discharge Plan Discharge Plan: Outpatient Follow Up Outpatient Program: Private Clinician(s)
[2017-12-31] MEDS: QUEtiapine TAB* 100 MG PO PRN (23:48)
[2017-12-31] MEDS: Zolpidem TAB* 10 MG PO PRN (23:48)
[2018-01-01 07:41] VITALS: BP 98/72
[2018-01-01] MEDS: Amphetamine/Dextroamph ER(NF) 10 MG CAP.ER PO SCH (07:49)
[2018-01-01] MEDS: BuPROPion XL* 300 MG TAB.XL PO SCH (07:49)
[2018-01-01] MEDS: Vitamin THERAPEUTIC TAB PO SCH (07:50)
[2018-01-01] MEDS: Nicotine GUM* 2 MG PO PRN ×2 (08:09→10:49)
--- NOTE | 2018-01-02 12:06 | DS ---
AMENDED REPORT NOW INCLUDES COSIGNER DESIGNATION - ESIGNED BEFORE ADJUSTMENT CC: Cherie Lo, LCAT; Malu Yang * DISCHARGE SUMMARY: DATE OF ADMISSION: 12/29/17 DATE OF DISCHARGE: 01/01/18 SUPERVISING PSYCHIATRIST: Dr. Atif Benoit.* (DICTATED BY ROSHAN CARDENAS NP) DISCHARGE DIAGNOSES: 1. Posttraumatic stress disorder. 2. Major depressive disorder. 3. Attention-deficit hyperactivity disorder. 4. Borderline personality traits. 5. Anorexia nervosa, in remission. CONDITION AT THE TIME OF DISCHARGE: Improved. The patient denies suicidal ideation. She requests to be discharged today, so that she can attend her already scheduled appointment with her therapist, Cherie Lo. The patient is moderately receptive of treatment suggestions to increase her outpatient psychiatric services and activities in her local community. The patient has much improved mood and affect while on the behavioral services unit. This is a pattern noted by multiple staff members who have known her over the years. It appears that patient benefits from social integration. She states understanding of recommendation to pursue eduction efforts that are attainable to her. At this time, the patient's recent stressors appear to be in correlation with being denied disability benefits. She was hoping to attain disability and move to the formerly [facility]. The patient endorses insight that remaining in the [facility] is likely more reasonable and she would do well to increase her therapeutic and interpersonal efforts there. MENTAL STATUS EXAM AT THE TIME OF DISCHARGE: The patient is adequately groomed. She is wearing her own clothing. Her hair is down. She is not wearing makeup, which is per her usual. She is alert and oriented x3. Her eye contact is good. Her mood is good. Her affect is congruent. Speech is soft and articulate. Thought process is coherent and goal directed, logical. The patient denies suicidal ideation or urges for self-harm. Her impulse control is intact in this setting. There is no evidence of perceptual disturbances at this time. Her insight and judgment is fair as evidenced by repeated hospitalizations in the context of social isolation. DISCHARGE INSTRUCTIONS GIVEN TO THE PATIENT: A. Medications: She will continue the medications that she was prescribed prior to hospitalization. The patient denies needing prescription refills at this time. The patient is unsure if she wants to continue at the increased dose of bupropion, she preferred to stay at 150 mg p.o. daily. Other medications include: 1. Adderall 20 mg p.o. b.i.d. 2. Multivitamin. 3. Nicotine gum. 4. Quetiapine 100 mg p.o. at bedtime p.r.n. insomnia. 5. Ambien 10 mg p.o. at bedtime p.r.n. insomnia. B. Diet is regular. C. Activities: Ambulation as tolerated. Tobacco cessation: The patient declined. There are no studies pending at the time of discharge. The patient had been given a questionnaire to complete this morning; however, she missed the two- sided copies and therefore this was unable to be scored. D. Followup care: The patient will follow up with her therapist, Cherie Lo today at 2:30. She will follow up with her psychiatric nurse practitioner, Malu Yang on 01/07/18 at 2 p.m. The patient was given information in regards to the advocacy center for supportive trauma work. E. Substance abuse followup is not applicable. HOSPITAL COURSE: Part A: Reason for admission: The patient presented to the emergency department after attempting to hang herself in a tree in a local park. She had taken a bus from [place] to [place] due to her conformability of this community. The patient was seen in the emergency room and deemed medically stable. Her blood work was within normal limits including CBC with differential, CMP, lipid profile, hemoglobin A1c, TSH, and HCG. Her urinalysis was positive for ketones, leukocyte esterase. Toxicology was negative for salicylates, acetaminophen, or alcohol and her urine drug screen was negative. The patient was admitted on voluntary status to the adult behavioral services unit. Part B: Psychiatric treatment rendered: The patient was placed on 15-minute checks for safety. This was approximately the 9th psychiatric hospitalization, many of them have been here, so she was familiar with the unit. She immediately gets in therapeutic milieu and interactions with peers. She was noted to have bright affect even when discussing recent stressors and self-harm attempts. On her first night of her admission, she approached nursing and notified them of her suicidal ideation and preparation in making a noose in her hospital room. The next day, the patient requested to be able to go on staff pass and was mildly upset when this request was denied due to legality risk. The patient was hesitant to engage in discussions in regards to treating past trauma or personality disorders. She was also hesitant to engage in any medication changes. This science writer spoke with her outpatient provider and obtained collateral information. Basically, it seems as though Reyna has been dictating her treatment with little to fair insight. She is difficult to challenge in regards to causing this behavioral approaches. There is also some frustration on her part of not knowing resources and/or not wanting to attend those in the [facility]. The patient would prefer to live in the formerly [facility]. She is unable to do so at this time due to financial strain. Day before discharge, the patient reported readiness. She agreed to remain one more night for safety and then to leave shortly before her therapy appointment the next day. Today as stated above, the patient continues to assert readiness for discharge. She denies suicidal ideation. She will benefit from brief hospitalization to avoid dependency and decompensation. The patient is at chronic elevated risk for suicide based on prior history and diagnostic profile. Acute risk is low based on symptom burden and the patient's observed benign behavior. She states she plans to utilize public transportation to attend her appointment this afternoon, then her brother will be able to provide transportation to her back to [place]. Social work has coordinated this with her outpatient therapist as well. ROSHAN CARDENAS NP [id number]/CPS #: [id number] SUE
== END 2018-01-01 12:30 | disposition home or self-care (01) | DRG 755 ==
LOC: ED 20:20 → BSU 12-29 16:52
PROVIDERS: ADMIT Psychiatry & Neurology Psychiatry; ATTEND Psychiatry & Neurology Psychiatry
DX: F43.12 Post-traumatic stress disorder, chronic (principal); F33.2 Major depressive disorder, recurrent severe without psychotic features; R45.851 Suicidal ideations; F90.9 Attention-deficit hyperactivity disorder, unspecified type; J45.909 Unspecified asthma, uncomplicated; G43.909 Migraine, unspecified, not intractable, without status migrainosus; K44.9 Diaphragmatic hernia without obstruction or gangrene; Z62.810 Personal history of physical and sexual abuse in childhood; Z81.8 Family history of other mental and behavioral disorders; Z81.1 Family history of alcohol abuse and dependence
CPT/HCPCS: 36415; 80053; 80061; 80307; 80320; 80329; 81003; 81015; 83036; 84443; 84702; 85025; 87086; 90853; 99222; 99231; 99232; 99238; 99283; A9270-GY; G0480

== ENCOUNTER 2018-10-21 19:43 | Inpatient (IN) | payer OTHER ==
[2018-10-21] MEDS ORDERED: LORazepam TAB(*) 1 MG PO ONE (20:23)
--- NOTE | 2018-10-21 20:30 | ED ---
Psychiatric Complaint - HPI Summary HPI Summary: 33 year old female presents with increased anxiety and stress. She states stressors in her life include that her dad is dying and she just broke up from long-term relationship. She denies any suicidal or homicidal thoughts. She states she's been feeling more anxious. She said she saw her psychiatrist who told her to come to the ER for evaluation. She denies any plan to hurt himself or others. Denies any drug or alcohol use. - History Of Current Complaint Chief Complaint: EDMentalHealth Time Seen by Provider: 10/21/18 20:18 - Allergies/Home Medications Allergies/Adverse Reactions: Allergies Allergy/AdvReac Type Severity Reaction Status Date / Time No Known Allergies Allergy Verified 12/29/17 17:04 Home Medications: Home Medications Adderall 30 mg- BID 10/21/18 [History] BuPROPion XL* [Bupropion XL*] 150 mg PO DAILY 10/21/18 [History Confirmed ] Dextroamphetamine/Amphetamine [Dextroamp-Amphetamin 30 mg Tab] 10/21/18 [ History] PMH/Surg Hx/FS Hx/Imm Hx Endocrine/Hematology History: Denies: Hx Anticoagulant Therapy, Hx Diabetes, Hx Thyroid Disease Cardiovascular History: Reports: Other Cardiovascular Problems/Disorders - RAYNAUDS PHENOMENON Denies: Hx Hypertension, Hx Pacemaker/ICD Respiratory History: Reports: Hx Asthma - Occasional to rare use of Albuterol MDI Denies: Hx Chronic Obstructive Pulmonary Disease (COPD) GI History: Reports: Hx Hiatal Hernia History: Denies: Hx Renal Disease Musculoskeletal History: Reports: Hx Osteoporosis Sensory History: Denies: Hx Contacts or Glasses, Hx Hearing Aid Opthamlomology History: Denies: Hx Contacts or Glasses Neurological History: Denies: Hx Dementia, Hx Developmental Delay, Hx Headaches, Hx Migraine - Pt stated, Hx Nerve Disease, Hx Seizures, Hx Spinal Cord Injury, Hx Transient Ischemic Attacks (TIA), Other Neuro Impairments/Disorders Psychiatric History: Reports: Hx Anxiety, Hx Attention Deficit Hyperactivity Disorder, Hx Eating Disorder - Anorexia, Hx Depression, Hx Post Traumatic Stress Disorder, Hx Inpatient Treatment, Hx Community Mental Health Tx, Hx Suicide Attempt, Hx Substance Abuse, Other Psychiatric Issues/Disorders - BORDERLINE PERS D/O Denies: Hx Panic Disorder, Hx Schizophrenia, Hx Bipolar Disorder, Hx of Violent Episodes Against Others - Surgical History Surgery Procedure, Year, and Place: wisdom teeth removal - Immunization History Date of Tetanus Vaccine: unknown Date of Influenza Vaccine: none Infectious Disease History: No Infectious Disease History: Denies: Hx Clostridium Difficile, Hx Hepatitis, Hx Human Immunodeficiency Virus (HIV), Hx Shingles, Hx Tuberculosis, Hx Known/Suspected VRE, Hx Known/ Suspected VRSA, History Other Infectious Disease, Traveled Outside the [place] in Last 30 Days - Family History Known Family History: Positive: Other - DEPRESSION, ETOH ABUSE Negative: Cardiac Disease, Hypertension, Diabetes - Social History Alcohol Use: None Hx Substance Use: No Substance Use Type: Reports: None Hx Tobacco Use: Yes - 8 YEARS, 1/2 PACK A DAY Smoking Status (MU): Light Every Day Tobacco Smoker Type: Cigarettes Amount Used/How Often: 1/2 ppd Length of Time of Smoking/Using Tobacco: 10 years Have You Smoked in the Last Year: Yes - Pt has smoked tobacco within the past 30 days Review of Systems Negative: Fever Negative: Chest Pain Negative: Shortness Of Breath Positive: Anxious, Depressed All Other Systems Reviewed And Are Negative: Yes Physical Exam Triage Information Reviewed: Yes Vital Signs On Initial Exam: Initial Vitals Temp Pulse Resp BP Pulse Ox 100 F 116 20 135/84 100 10/21/18 19:46 10/21/18 19:46 10/21/18 19:46 10/21/18 19:46 10/21/18 19:46 Vital Signs Reviewed: Yes Appearance: Positive: Well-Appearing Skin: Positive: Warm, Dry Head/Face: Positive: Normal Head/Face Inspection Eyes: Positive: Normal, Conjunctiva Clear ENT: Positive: Pharynx normal Respiratory/Lung Sounds: Positive: Clear to Auscultation, Breath Sounds Present Cardiovascular: Positive: Normal, RRR Musculoskeletal: Positive: Normal Neurological: Positive: Normal Psychiatric: Positive: Anxious Diagnostics - Vital Signs Vital Signs Temp Pulse Resp BP Pulse Ox 10/21/18 19:46 100 F 116 20 135/84 100 - Laboratory Result Diagrams: 10/21/18 20:38 10/21/18 20:38 Lab Statement: Any lab studies that have been ordered have been reviewed, and results considered in the medical decision making process. Course/Dx - Course Course Of Treatment: 33 year old female presents with increased anxiety and stress. She states stressors in her life include that her dad is dying and she just broke up from long-term relationship. She denies any suicidal or homicidal thoughts. She states she's been feeling more anxious. She said she saw her psychiatrist who told her to come to the ER for evaluation. She denies any plan to hurt himself or others. Denies any drug or alcohol use. On exam patient just appears anxious. labs within normal limits. Patient medically clear for mental exam. after mental health exam patient will be admitted. - Differential Dx/Clinical Impression Differential Diagnosis/HQI/PQRI: Positive: Anxiety, Depression, Suicidal Ideation Provider Diagnosis: Depression Discharge - Sign-Out/Discharge Documenting (check all that apply): Patient Departure - Discharge Plan Condition: Stable Disposition: PSYCHIATRIC FACILITY-[facility] [place] Referrals: No Primary Care Phys,NOPCP [Primary Care Provider] - - Billing Disposition and Condition Condition: STABLE Disposition: Psychiatric Facility [facility] [place]
[2018-10-21 20:49] LABS: ABS Basophils 0.1 10^3/ul (0-0.2); ABS Eosinophils 0.6 10^3/ul (0-0.6); ABS Monocytes 0.7 10^3/ul (0-0.8); ABS Neutrophils 3.3 10^3/ul (1.5-7.7); ABS Nucleated RBC 0 10^3/ul; Eosinophil % 8.8 %; Hematocrit 37 % (35-47); Hemoglobin 12.3 g/dl (12.0-16.0); Lymphocyte % 30.3 %; Mean Corpuscular HGB Conc 34 g/dl (31-36); Mean Corpuscular Hemoglobin 30 pg (27-31); Mean Corpuscular Volume 90 fL (80-97); Mean Platelet Volume 8.3 fL (7.4-10.4); Nucleated Red Blood Cells % 0; Platelet Count 294 10^3/ul (150-450); Red Blood Count 4.09 10^6/ul (4.00-5.40); Red Cell Distribution Width 14 % (10.5-15); White Blood Count 6.7 10^3/ul (3.5-10.8)
[2018-10-21 20:58] LABS: Urine Appearance Clear; Urine Bilirubin Negative (Negative); Urine Blood Negative (Negative); Urine Color Yellow; Urine Glucose Negative (Negative); Urine Ketones Negative (Negative); Urine Nitrite Negative (Negative); Urine Protein Negative (Negative); Urine Specific Gravity 1.014 (1.010-1.030); Urine Urobilinogen Negative (Negative)
[2018-10-21 21:00] LABS: Albumin 4.2 g/dL (3.2-5.2); CO2 Carbon Dioxide 24 mmol/L (22-32); Chloride 106 mmol/L (101-111); Sodium 137 mmol/L (135-145)
[2018-10-21 21:06] LABS: ALT 8 U/L (7-52); Albumin/Globulin Ratio 1.6 (1-3); Alkaline Phosphatase 67 U/L (34-104); Blood Urea Nitrogen 11 mg/dL (6-24); Globulin 2.7 g/dL (2-4); Glucose 113 mg/dL (70-100); Total Protein 6.9 g/dL (6.4-8.9)
[2018-10-21 21:12] LABS: Acetaminophen < 15 mcg/mL; Alcohol < 10 mg/dL (<10); Salicylate < 2.50 mg/dL (<30)
[2018-10-21 21:15] LABS: Barbiturates Urine Screen None Detected (None Detect); Benzodiazepine Urine Screen None Detected (None Detect); Urine Cannabinoids Screen None Detected (None Detect)
[2018-10-21 21:28] LABS: TSH (Thyroid Stimulating Horm) 1.19 mcIU/mL (0.34-5.60)
[2018-10-21 21:55] LABS: AST 17 U/L (13-39); Anion Gap 7 mmol/L (2-11); Potassium 3.8 mmol/L (3.5-5.0)
[2018-10-21] MEDS ORDERED: Zolpidem TAB* 10 MG PO ONE (23:28)
[2018-10-22] MEDS ORDERED: Acetaminophen TAB* 325 MG PO PRN (01:24)
[2018-10-22] MEDS ORDERED: Al Hydrox/Mg Hydrox/Simet LIQ* 30 ML UDC PO PRN (01:25)
[2018-10-22] MEDS ORDERED: Mouth Piece, Nicotine* 1 EACH CARTRIDGE INH PRN (01:25)
[2018-10-22] MEDS ORDERED: Nicotine Inhaler* 10 MG AMP INH PRN (01:25)
[2018-10-22] MEDS: Nicotine GUM* 2 MG PO PRN ×6 (01:27→18:51)
[2018-10-22] MEDS ORDERED: Albuterol HFA INHALER* 8 gm MDI INH PRN (03:29)
[2018-10-22] MEDS ORDERED: BuPROPion XL* 150 MG TAB.XL PO SCH (09:00)
[2018-10-22] MEDS: Multivitamins/Minerals TAB PO SCH (09:22)
[2018-10-22] MEDS ORDERED: Propranolol TAB* 10 MG PO PRN (11:46)
[2018-10-22] MEDS ORDERED: BuPROPion XL* 150 MG TAB.XL PO ONE (11:46)
[2018-10-22] MEDS: Amphetamine MIXED SALT TAB* 10 MG TAB PO SCH (13:33)
--- NOTE | 2018-10-22 16:42 | PN ---
MHU: Group Therapy Note - Service Type Service Type: [id number] Group Psychotherapy - Medication Education Group: Patient was attentive and participatory in group, and remained in good behavioral control. Patient expressed positive insights regarding relevant treatment interventions. Patient stated understanding of material discussed and had appropriate questions.
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
[2018-10-22] MEDS: Zolpidem TAB* 10 MG PO PRN (23:18)
[2018-10-23] MEDS: QUEtiapine TAB* 100 MG PO PRN ×2 (00:54→23:25)
[2018-10-23] MEDS: BuPROPion XL* 300 MG TAB.XL PO SCH (10:08)
[2018-10-23] MEDS: Amphetamine MIXED SALT TAB* 10 MG TAB PO SCH ×2 (10:08→13:54)
[2018-10-23] MEDS: Multivitamins/Minerals TAB PO SCH (10:08)
[2018-10-23] MEDS: Nicotine GUM* 2 MG PO PRN ×4 (10:15→20:45)
--- NOTE | 2018-10-23 13:11 | PN ---
Subjective - Subjective Date of Service: 10/23/18 Service Type: 50614 Hosp care 15 min low complexity Subjective: Patient reports last night was "brutal" due to anxiety and flashbacks. She states she is hoping to connect with previous therapist, Cherie about meeting for a termination session. Clinical Dietitian encourages patient to send a letter or card to express thanks and to continue to establish rapport with newly assigned therapist at [facility] in [place]. She is noted to be euthymic with bright affect and interacting well with peers. Objective - Appearance Appearance: Thin Framed Dysmorphic Features: No Hygiene: Normal Grooming: Well Kept - Behavior Psychomotor Activities: Normal Exhibits Abnormal Movement: No - Attitude and Relatedness Attitude and Relatedness: Cooperative Eye Contact: Good - Speech Quality: Unpressured Latencies: Normal Quantity: Appropriate - Mood Patient's Decription of Mood: "Okay" - Affect Observed Affect: Good Affect Consistent with: Euthymia - Thought Process Patient's Thought Process: Coherent, Goal Directed Thought Content: No Passive Wish, No Suicidal Planning, No Homicidal Ideation, No Paranoid Ideation - Sensorium Experiencing Hallucinations: No, Sensorium is Clear Type of Hallucinations: Visual: No, Auditory: No, Command: No - Level of Consciousness Level of Consciousness: Alert Orientation: Yes Intact, Yes Orientated to Time, Yes Orientated to Place, Yes Orientated to Person - Impulse Control Impulse Control: Intact - Insight and Judgement Insight and Judgement: Fair - Group Participation Particating in Group Activities: Yes - Medication Management Medication Management Adherence: Yes Assessment - Assessment Merits Inpatient Hospitalization: For Immediate Safety, For Stabilization Inpatient DSM-V Dx: F33.0 Clinical Impression: 33yo wf with history of trauma and psychiatric hospitalizations following suicidality. She presented to ED after an appointment with hydraulic tester in [place] due to suicidal ideation and poor medication adherence. Patient will benefit from brief hospitalization for safety. Plan - Plan Treatment Plan: Name: MAGALY BEARD Birthdate: 1985 [id number] continue acute intensive psychiatric treatment. may decrease to q30min observation and allow computer use/staff pass. continue current medications. tentative discharge for 10/24/18. Continued Medication Management: Start Medication Medications: Current Medications Acetaminophen (Tylenol Tab*) 650 mg PO Q4H PRN PRN Reason: PAIN; OR TEMP >101 Al Hydrox/Mg Hydrox/Simethicone (Maalox Plus*) 30 ml PO Q4H PRN PRN Reason: INDIGESTION Albuterol (Ventolin Hfa Inhaler*) 2 puff INH Q4H PRN PRN Reason: SOB/WHEEZING Amphetamine/Dextroamphetamine (Adderall Tab*) 30 mg PO 0700,1400 [facility] Last Admin: 10/23/18 10:08 Dose: 30 mg Bupropion HCl (Bupropion Xl*) 300 mg PO DAILY [facility] Last Admin: 10/23/18 10:08 Dose: 300 mg Device (Nicotine Mouth Piece*) 1 each INH ONCE PRN PRN Reason: CRAVINGS Multivitamins/Minerals (Theragran/Minerals Tab*) 1 tab PO DAILY [facility] Last Admin: 10/23/18 10:08 Dose: 1 tab Nicotine (Nicotine Inhaler*) 10 mg INH Q2H PRN PRN Reason: CRAVINGS Nicotine Polacrilex (Nicotine Gum*) 2 mg PO Q2H PRN PRN Reason: CRAVING Last Admin: 10/23/18 10:15 Dose: 2 mg Propranolol HCl (Inderal Tab*) 10 mg PO DAILY PRN PRN Reason: anxiety Last Admin: 10/22/18 21:21 Dose: 10 mg Quetiapine Fumarate (Seroquel Tab*) 100 mg PO BEDTIME PRN PRN Reason: .INSOMNIA Last Admin: 10/23/18 00:54 Dose: 100 mg Zolpidem Tartrate (Ambien Tab*) 10 mg PO BEDTIME PRN PRN Reason: INSOMNIA Last Admin: 10/22/18 23:18 Dose: 10 mg - Discharge Plan Discharge Plan: Outpatient Follow Up Outpatient Program: Private Clinician(s)
[2018-10-23] MEDS: Zolpidem TAB* 10 MG PO PRN (23:41)
[2018-10-24] MEDS: Nicotine GUM* 2 MG PO PRN ×2 (05:34→10:20)
[2018-10-24 08:00] VITALS: BP 107/82
[2018-10-24] MEDS: Amphetamine MIXED SALT TAB* 10 MG TAB PO SCH ×2 (09:23→15:14)
[2018-10-24] MEDS: BuPROPion XL* 300 MG TAB.XL PO SCH (09:24)
[2018-10-24] MEDS: Multivitamins/Minerals TAB PO SCH (09:24)
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
== END 2018-10-24 16:40 | disposition home or self-care (01) | DRG 755 ==
LOC: ED 19:43 → BSU 10-22 02:52
PROVIDERS: ADMIT Psychiatry & Neurology Psychiatry; ATTEND Psychiatry & Neurology Psychiatry
PROC: GZHZZZZ Group Psychotherapy (ICD-10-PCS; principal; 2018-10-22)
DX: F43.10 Post-traumatic stress disorder, unspecified (principal); F33.0 Major depressive disorder, recurrent, mild; F50.00 Anorexia nervosa, unspecified; J45.909 Unspecified asthma, uncomplicated; I73.00 Raynaud's syndrome without gangrene; M81.0 Age-related osteoporosis without current pathological fracture; K44.9 Diaphragmatic hernia without obstruction or gangrene; F90.9 Attention-deficit hyperactivity disorder, unspecified type; G43.909 Migraine, unspecified, not intractable, without status migrainosus; Z62.810 Personal history of physical and sexual abuse in childhood; F60.3 Borderline personality disorder; F41.9 Anxiety disorder, unspecified; Z91.5 Personal history of self-harm; Z81.8 Family history of other mental and behavioral disorders; Z81.1 Family history of alcohol abuse and dependence; Z91.14 Patient's other noncompliance with medication regimen
CPT/HCPCS: 36415; 80053; 80307; 80320; 80329; 81003; 84443; 85025; 90853; 99222; 99231; 99238; 99284; A9270-GY; G0480

== ENCOUNTER 2022-12-20 20:38 | Inpatient (IN) ==
[2022-12-20 22:01] LABS: ABS Basophils 0.1 10^3/ul (0-0.2); ABS Eosinophils 0.3 10^3/ul (0-0.6); ABS Lymphocytes 2.3 10^3/ul (1.0-4.8); ABS Monocytes 0.8 10^3/ul (0-0.8); ABS Neutrophils 4.4 10^3/ul (1.5-7.7); Eosinophil % 3.8 %; Hematocrit 39 % (35-47); Hemoglobin 12.9 g/dL (12.0-16.0); Lymphocyte % 29.6 %; Mean Corpuscular HGB Conc 33 g/dL (31-36); Mean Corpuscular Hemoglobin 30 pg (27-31); Mean Corpuscular Volume 90 fL (80-97); Mean Platelet Volume 8.8 fL (7.4-10.4); Platelet Count 276 10^3/uL (150-450); Red Blood Count 4.31 10^6 /uL (3.70-4.87); Red Cell Distribution Width 14 % (10-15); White Blood Count 7.9 10^3/uL (3.5-10.8)
[2022-12-20 22:12] LABS: Urine Appearance Clear; Urine Bilirubin Negative (Negative); Urine Blood Negative (Negative); Urine Color Yellow; Urine Glucose Negative (Negative); Urine Ketones Negative (Negative); Urine Nitrite Negative (Negative); Urine Protein 1+(30 mg/dL) (Negative); Urine Specific Gravity 1.017 (1.002-1.030); Urine Urobilinogen Negative (Negative)
[2022-12-20 22:15] LABS: Urine Bacteria Absent (Absent); Urine Red Blood Cell Trace(0-2/hpf) (Absent); Urine Squamous Epithelial Cell Present (Absent); Urine White Blood Cell Absent (Absent)
[2022-12-20 22:18] LABS: Urine Benzodiazepine Screen None Detected (None Detect); Urine Cannabinoids Screen None Detected (None Detect); Urine Opiates Screen None Detected (None Detect)
[2022-12-20 22:48] LABS: Albumin 4.4 g/dL (3.2-5.2); Anion Gap 3 mmol/L (2-11); Blood Urea Nitrogen 14 mg/dL (6-24); CO2 Carbon Dioxide 29 mmol/L (22-32); Calcium 9.4 mg/dL (8.6-10.3); Chloride 105 mmol/L (101-111); Creatinine, Serum 0.71 mg/dL (0.51-0.95); Globulin 2.5 g/dL (2-4); Glucose 90 mg/dL (70-100); Sodium 137 mmol/L (135-145); Total Protein 6.9 g/dL (6.4-8.9); eGFR CKD-EPI 112.2 (>60)
[2022-12-20 22:49] LABS: ALT 9 U/L (7-52); AST 12 U/L (13-39); Acetaminophen < 15 mcg/mL; Albumin/Globulin Ratio 1.8 (1-3); Alcohol, S < 13 mg/dL (<13); Alkaline Phosphatase 78 U/L (35-149); Salicylate < 2.50 mg/dL (<30)
[2022-12-20 23:03] LABS: TSH Ultra Thyroid Stim Horm 2.47 mcIU/mL (0.34-5.60)
[2022-12-20] MEDS: Nicotine GUM 2MG FRUIT FLAVOR PO PRN (23:20)
[2022-12-21] MEDS: Nicotine GUM 2MG FRUIT FLAVOR PO PRN ×7 (07:54→23:35)
[2022-12-21 08:09] LABS: HCG Pregnancy < 0.60 mIU/mL
[2022-12-21] MEDS ORDERED: Al Hydrox/Mg Hydrox/Simet LIQ 30 ML UDC PO PRN (10:02)
[2022-12-21] MEDS ORDERED: Albuterol HFA INHALER 8 gm MDI INH PRN (10:03)
[2022-12-21] MEDS ORDERED: Amphetamine MIXED SALT 10mgTAB PO ONE (15:36)
[2022-12-22 08:24] LABS: HDL Cholesterol 69.2 mg/dL
[2022-12-22] MEDS: Amphetamine MIXED SALT 10mgTAB PO SCH ×2 (08:32→13:54)
[2022-12-22] MEDS: Nicotine GUM 2MG FRUIT FLAVOR PO PRN ×6 (08:33→23:12)
[2022-12-22] MEDS ORDERED: Amphetamine/Dextroam ER 15(NF) 15 mg CAP.ER PO SCH (09:00)
[2022-12-22] MEDS ORDERED: [UNRECOGNIZED DRUG - OTHER] PO SCH (14:00)
[2022-12-23] MEDS: Amphetamine MIXED SALT 10mgTAB PO SCH ×2 (06:50→15:04)
[2022-12-23] MEDS: Nicotine GUM 2MG FRUIT FLAVOR PO PRN ×5 (07:38→22:06)
[2022-12-24 08:05] VITALS: BP 87/55
[2022-12-24] MEDS: Amphetamine MIXED SALT 10mgTAB PO SCH ×2 (08:24→11:59)
[2022-12-24] MEDS: Nicotine GUM 2MG FRUIT FLAVOR PO PRN (08:26)
== END 2022-12-24 12:18 | disposition home or self-care (01) | DRG 754 ==
LOC: ED 20:38 → EDHOLD 12-21 10:02 → BSU 12-21 12:06
PROVIDERS: ADMIT Psychiatry & Neurology Psychiatry; ATTEND Psychiatry & Neurology Psychiatry

== ENCOUNTER 2023-11-25 19:36 | Inpatient (IN) ==
[2023-11-25 20:55] LABS: Urine Appearance Cloudy; Urine Bilirubin Negative (Negative); Urine Blood Negative (Negative); Urine Color Yellow; Urine Glucose Negative (Negative); Urine Ketones Negative (Negative); Urine Nitrite Negative (Negative); Urine Protein Negative (Negative); Urine Specific Gravity 1.011 (1.002-1.030); Urine Urobilinogen Negative (Negative)
[2023-11-25] MEDS ORDERED: Al Hydrox/Mg Hydrox/Simet LIQ 30 ML UDC PO PRN (22:23)
[2023-11-26] MEDS: Nicotine GUM 2MG FRUIT FLAVOR PO PRN ×4 (07:21→21:10)
[2023-11-26 08:00] LABS: Cholesterol 152 mg/dL; LDL Cholesterol 66 mg/dL; Triglycerides 69 mg/dL
[2023-11-26] MEDS: Vitamin THERAPEUTIC TAB PO SCH (09:00)
[2023-11-26] MEDS ORDERED: Albuterol HFA INHALER 8 gm MDI INH PRN (11:03)
[2023-11-26 11:12] LABS: ALT 7 U/L (7-52); AST 12 U/L (13-39); Albumin 4.2 g/dL (3.2-5.2); Albumin/Globulin Ratio 1.6 (1-3); Alkaline Phosphatase 74 U/L (35-149); Anion Gap 10 mmol/L (2-16); Blood Urea Nitrogen 10 mg/dL (6-24); CO2 Carbon Dioxide 24 mmol/L (22-32); Calcium 9.3 mg/dL (8.6-10.3); Chloride 104 mmol/L (101-111); Creatinine, Serum 0.76 mg/dL (0.51-0.95); Globulin 2.7 g/dL (2-4); Glucose 93 mg/dL (70-100); Sodium 138 mmol/L (135-145); Total Bilirubin 0.5 mg/dL (0.2-1.0); Total Protein 6.9 g/dL (6.4-8.9); eGFR CKD-EPI 102.8 (>60)
[2023-11-26 11:18] LABS: HCG Pregnancy < 0.60 mIU/mL
[2023-11-26] MEDS: Amphetamine/Dextroam ER 10(NF) 10 mg CAP.ER PO SCH (12:17)
[2023-11-26 17:08] LABS: ABS Basophils 0.1 10^3/uL (0.0-0.1); ABS Eosinophils 0.6 10^3/uL (0.0-0.5); ABS Lymphocytes 2.9 10^3/uL (1.0-4.8); ABS Monocytes 0.7 10^3/uL (0.0-0.9); ABS Nucleated RBC 0.01 10^3/ul; Hematocrit 39.4 % (35-45); Hemoglobin 13.2 g/dL (11.5-14.3); Lymphocyte % 46.1 %; Mean Corpuscular Hemoglobin 30.7 pg (27-33); Mean Corpuscular Hgb Conc 33.6 g/dL (31-36); Mean Corpuscular Volume 91.3 fL (80-97); Mean Platelet Volume 9.4 fL (7.5-11.2); Nucleated Red Blood Cells % 0.2 %/100WBC (0.0-0.8); Platelet Count 304 10^3/uL (150-450); Red Blood Count 4.31 10^6/uL (3.63-4.92); Red Cell Distribution Width 13.6 % (12-17); White Blood Count 6.2 10^3/uL (3.8-11.8)
[2023-11-27] MEDS: Vitamin THERAPEUTIC TAB PO SCH (08:39)
[2023-11-27] MEDS: Amphetamine/Dextroam ER 10(NF) 10 mg CAP.ER PO SCH ×2 (08:40→12:29)
[2023-11-27] MEDS: Nicotine GUM 2MG FRUIT FLAVOR PO PRN ×5 (08:42→23:14)
[2023-11-28] MEDS: Amphetamine/Dextroam ER 10(NF) 10 mg CAP.ER PO SCH ×2 (08:21→12:06)
[2023-11-28] MEDS: Nicotine GUM 2MG FRUIT FLAVOR PO PRN (08:21)
[2023-11-28 08:50] VITALS: BP 109/71
[2023-11-28] MEDS: Vitamin THERAPEUTIC TAB PO SCH (10:35)
== END 2023-11-28 12:25 | disposition home or self-care (01) | DRG 756 ==
LOC: ED 19:36 → EDHOLD 22:23 → BSU 23:14
PROVIDERS: ADMIT Psychiatry & Neurology Psychiatry; ATTEND Psychiatry & Neurology Psychiatry